=== PATIENT | female | born 1985 | race Caucasian/White ===

== ENCOUNTER 2018-04-12 09:49 | Outpatient (CLI) | payer OTHER ==
--- NOTE | 2018-04-12 10:47 | RAD ---
LEFT KNEE THREE VIEWS: History: 32-year-old female with history chondromalacia patella, left knee. FINDINGS: Mild degenerative changes noted involving the knee joint. No fracture or dislocation or other signifi cant acute osseous abnormality. IMPRESSION: Mild degenerative changes without fracture or dislocation. POS: [facility]
--- NOTE | 2018-04-12 10:48 | RAD ---
FOUR VIEWS OF THE RIGHT KNEE: COMPARISON: None. HISTORY: Right knee pain. Chondromalacia patella. FINDINGS: Four views of the right knee show no evidence of acute fracture or dislocation. No degenerative hassan ges are seen. No knee effusion is seen. IMPRESSION: Unremarkable exam. POS: [facility]
== END 2018-04-12 09:50 | disposition home or self-care (01) ==
LOC: BICRAD 09:49
PROVIDERS: ATTEND Internal Medicine Rheumatology
DX: M22.41 Chondromalacia patellae, right knee (principal); M22.42 Chondromalacia patellae, left knee; M17.12 Unilateral primary osteoarthritis, left knee

== ENCOUNTER 2018-11-21 07:27 | Outpatient (CLI) | payer BC ==
--- NOTE | 2018-11-21 09:32 | MRI ---
BRAIN MRI WITH AND WITHOUT CONTRAST: Date: 11/21/18 COMPARISON: 02/25/2016. HISTORY: Pituitary tumor, headaches, prior surgery. TECHNIQUE: Multiplanar multisequence MR imaging of the brain obtained with and without contrast using a pituitary mass protocol. FINDINGS: The diffusion weighted imaging demonstrates no evidence for acute infarction. There is a small focus of increased FLAIR and T2 signal measuring 3-4 mm involving the subcortical wh ite matter of the right frontal region, unchanged when compared to the 2016 examination. The imaged paranasal sinuses and mastoid air cells are well aerated. The regional bone marrow signal intensity appears within normal limits. Arterial flow voids at the axial level of the skull base appear grossly unremarkable on the T2-weight ed imaging. The pituitary gland appears normal in size and signal intensity. No suprasellar lesion. Pituitary sta lk demonstrates a normal appearance. Cavernous carotid flow voids appear within normal limits. Postcontrast imaging demonstrates no abnormal enhancement in the region of the pituitary gland/sella turcica. Whole brain postcontrast imaging is unremarkable as well. There is a 5 mm T1 and T2 isointense lesion to the left of midline posterior to the pituitary gland i nferior to the optic chiasm which is stable when compared to the prior examination and likely demonstrates mild enhancement. Stability over 3 years suggests a benign etiology. Perhaps this repres ents a small meningioma. IMPRESSION: Stable brain MRI. No pituitary lesion. Questionable 5 mm meningioma posterior to the pituitary gland on the left. A CT examination may be beneficial for further assessment with thin cuts through the skull base. Transcribed Date/Time: 11/21/2018 10:29 AM
== END 2018-11-21 07:28 | disposition home or self-care (01) ==
LOC: SCSMRI 07:27
PROVIDERS: ATTEND Neurological Surgery
DX: D35.2 Benign neoplasm of pituitary gland (principal)
CPT/HCPCS: 70553

== ENCOUNTER 2020-01-06 11:22 | Emergency (ER) | payer BC, OTHER ==
[2020-01-06] MEDS ORDERED: Azithromycin 250 MG TAB ONE (12:16)
[2020-01-06] MEDS ORDERED: Ondansetron PF 4 MG/2 ML Vial ONE (12:16)
--- NOTE | 2020-01-06 12:37 | RAD ---
CHEST 1 VIEW: INDICATION: Chest pain, shortness of breath, and exposure to COVID-19. COMPARISON: None. FINDINGS: No acute airspace opacity is evident. Heart size is accentuated by exam technique. No pleural effus ion or pneumothorax is evident. No acute osseous abnormality is evident. IMPRESSION: No acute abnormality. POS: [facility]
[2020-01-06 13:05] LABS: Hemoglobin 12.7 g/dL (12.0-16.0); Mean Corpuscular HGB CONC 33.7 g/dL (32.0-36.0); Mean Corpuscular Hemoglobin 29.3 pg (27.0-31.0); Mean Corpuscular Volume 87.2 fL (78.0-98.0); Mean Platelet Volume 7.1 fL (7.4-10.4); Platelet Count 169 thou/uL (130-400); RBC Distribution Width 11.2 % (11.5-14.5); Red Blood Cell (RBC) Count 4.34 mill/uL (4.20-5.40); White Blood Cell (WBC) Count 4.8 thou/uL (4.8-10.8)
[2020-01-06 13:25] LABS: Band 17 % (5-11); Eosinophils 1 % (0-10); Lymphocytes 20 % (21-51); MDiff Complete? YES; Monocytes 17 % (0-10); Neutrophil 44 % (42-75); Platelet Morphology Comment Appears Adequate; RBC Morphology Normal; Reactive Lymphocytes 1 % (0-10)
[2020-01-06 13:27] LABS: ALT (SGPT) 26 U/L (8-55); AST (SGOT) 19 U/L (5-34); Alkaline Phosphatase 68 U/L (40-110); Anion Gap 12 mmol/L (10-20); BUN (Urea Nitrogen) 9 mg/dL (7.0-18.7); Bilirubin, Total 0.2 mg/dL (0.2-1.2); Calc. Creatinine Clearance 0 mL/min (70-130); Calcium 8.9 mg/dL (7.8-10.44); Carbon Dioxide 26 mmol/L (22-29); Chloride 107 mmol/L (98-107); Estimated GFR-MDRD Greater than 90; Globulin 2.6 g/dL (2.4-3.5); Glucose 106 mg/dL (70-105); Protein, Total 6.6 g/dL (6.0-8.3); Sodium 141 mmol/L (136-145)
[2020-01-06 14:33] LABS: Bilirubin Negative (Negative); Blood, Urine Negative (Negative); Clarity Clear (Clear); Glucose, Urine (Dipstick) Normal (Negative); Ketone, Urine Negative (Negative); Leukocyte Negative Leu/uL (Negative); Nitrite Negative (Negative); Protein, Urine (Dipstick) Negative (Neg-Trace); Specific Gravity, Urine 1.004 (1.002-1.036); Urobilinogen Normal mg/dL (Less than 2); pH, Urine 6.5 (5.0-9.0)
[2020-01-07 12:20] LABS: SARS-CoV-2 MS2 Positive; SARS-CoV-2 N Gene Positive; SARS-CoV-2 S Gene Positive; SARS-CoV-2 by NAA DETECTED (NotDetected); SARS-CoV-2 orf1ab Positive
== END 2020-01-06 14:14 | disposition home or self-care (01) ==
LOC: ERS 11:22
DX: U07.1 COVID-19 (principal); N30.90 Cystitis, unspecified without hematuria; E03.9 Hypothyroidism, unspecified; I10 Essential (primary) hypertension
CPT/HCPCS: 71045; 80053; 81003; 85025; 87086; 87635; 93005; 96361; 96374; J2405; U0003

== ENCOUNTER 2020-01-11 17:15 | Emergency (ER) | payer BC ==
[2020-01-11 18:01] LABS: #Lymphocytes 1.6 thou/uL (1.20-3.40); #Monocytes 0.5 thou/uL (0.11-0.59); %Basophils 0.4 % (0.0-1.0); %Eosinophils 0.2 % (0.0-10.0); %Lymphocytes 37.8 % (21.0-51.0); %Monocytes 12.1 % (0.0-10.0); %Neutrophils 49.5 % (42.0-75.0); Mean Corpuscular HGB CONC 32.9 g/dL (32.0-36.0); Mean Corpuscular Hemoglobin 28.2 pg (27.0-31.0); Mean Corpuscular Volume 85.7 fL (78.0-98.0); Mean Platelet Volume 8.1 fL (7.4-10.4); Platelet Count 144 thou/uL (130-400); RBC Distribution Width 11.3 % (11.5-14.5); Red Blood Cell (RBC) Count 5.31 mill/uL (4.20-5.40); White Blood Cell (WBC) Count 4.1 thou/uL (4.8-10.8)
--- NOTE | 2020-01-11 18:07 | RAD ---
Exam: Chest one view HISTORY:Sepsis. COVID positive patient. Comparison: 01/06/2020 FINDINGS: Cardiac silhouette: Normal Aorta: Unremarkable Pulmonary vessels: Normal Costophrenic angles: Clear LUNGS: Interval development of minimal patchy interstitial opacities. Pneumothorax: None Osseous abnormalities: None IMPRESSION: Interval development of minimal patchy interstitial opacities.
[2020-01-11] MEDS ORDERED: Acetaminophen 500 MG TAB ONE (18:08)
[2020-01-11 18:17] LABS: ALT (SGPT) 44 U/L (8-55); AST (SGOT) 40 U/L (5-34); Albumin 4.7 g/dL (3.5-5.0); Alkaline Phosphatase 83 U/L (40-110); Anion Gap 16 mmol/L (10-20); BUN (Urea Nitrogen) 6 mg/dL (7.0-18.7); Bilirubin, Total 0.4 mg/dL (0.2-1.2); Calc. Creatinine Clearance 0 mL/min (70-130); Calcium 9.7 mg/dL (7.8-10.44); Carbon Dioxide 23 mmol/L (22-29); Chloride 105 mmol/L (98-107); Estimated GFR-MDRD 82; Globulin 3.8 g/dL (2.4-3.5); Glucose 97 mg/dL (70-105); Potassium 4.1 mmol/L (3.5-5.1); Protein, Total 8.5 g/dL (6.0-8.3); Sodium 140 mmol/L (136-145)
[2020-01-11] MEDS ORDERED: Ondansetron PF 4 MG/2 ML Vial ONE (19:29)
== END 2020-01-11 21:04 | disposition home or self-care (01) ==
LOC: ERS 17:15
DX: U07.1 COVID-19 (principal); R94.5 Abnormal results of liver function studies; R11.2 Nausea with vomiting, unspecified; E03.9 Hypothyroidism, unspecified; M79.7 Fibromyalgia; M19.90 Unspecified osteoarthritis, unspecified site; I10 Essential (primary) hypertension; Q61.3 Polycystic kidney, unspecified
CPT/HCPCS: 36415; 71045; 80053; 83605; 84484; 85025; 87040; 93005; 94760; 96361; 96374; J2405

== ENCOUNTER 2020-02-17 09:59 | Emergency (ER) | payer BC, OTHER ==
[2020-02-17 11:39] LABS: #Eosinphils 0.1 thou/uL (0.0-0.7); #Lymphocytes 1.8 thou/uL (1.20-3.40); #Monocytes 0.6 thou/uL (0.11-0.59); #Neutrophils 4.5 thou/uL (1.40-6.50); %Basophils 0.5 % (0.0-1.0); %Eosinophils 1.1 % (0.0-10.0); %Lymphocytes 25.7 % (21.0-51.0); %Monocytes 9.1 % (0.0-10.0); %Neutrophils 63.6 % (42.0-75.0); Hemoglobin 11.8 g/dL (12.0-16.0); Mean Corpuscular HGB CONC 34.8 g/dL (32.0-36.0); Mean Corpuscular Hemoglobin 30.6 pg (27.0-31.0); Mean Corpuscular Volume 87.8 fL (78.0-98.0); Mean Platelet Volume 6.9 fL (7.4-10.4); Platelet Count 216 thou/uL (130-400); RBC Distribution Width 13.1 % (11.5-14.5); Red Blood Cell (RBC) Count 3.86 mill/uL (4.20-5.40)
[2020-02-17 12:01] LABS: ALT (SGPT) 37 U/L (8-55); AST (SGOT) 30 U/L (5-34); Alkaline Phosphatase 54 U/L (40-110); Anion Gap 13 mmol/L (10-20); BUN (Urea Nitrogen) 5 mg/dL (7.0-18.7); Bilirubin, Total 0.4 mg/dL (0.2-1.2); CK (CPK) 39 U/L (29-168); Calc. Creatinine Clearance 0 mL/min (70-130); Calcium 8.7 mg/dL (7.8-10.44); Carbon Dioxide 25 mmol/L (22-29); Chloride 106 mmol/L (98-107); Estimated GFR-MDRD Greater than 90; Globulin 2.5 g/dL (2.4-3.5); Glucose 121 mg/dL (70-105); Potassium 3.4 mmol/L (3.5-5.1); Protein, Total 6.5 g/dL (6.0-8.3); Sodium 141 mmol/L (136-145)
--- NOTE | 2020-02-17 12:19 | ULT ---
EXAM: Right lower extremity venous Doppler US HISTORY: Right lower extremity edema and pain FINDINGS: Grayscale, color-flow, Doppler evaluation, spectral analysis of the right lower extremity venous stru ctures is performed with 2-D imaging. The right common femoral, superficial femoral, popliteal, posterior tibial, proximal greater saphenous and profunda femoral veins are imaged. There is normal luminal compressibility, flow, and augmentation the visualized deep venous structures of the right lower extremity. IMPRESSION: No evidence of a deep vein thrombosis in the right lower extremity.
== END 2020-02-17 13:17 | disposition home or self-care (01) ==
LOC: ERS 09:59
DX: R22.41 Localized swelling, mass and lump, right lower limb (principal); E03.9 Hypothyroidism, unspecified; I10 Essential (primary) hypertension; M79.7 Fibromyalgia; M19.90 Unspecified osteoarthritis, unspecified site; Z79.899 Other long term (current) drug therapy
CPT/HCPCS: 36415; 80053; 82550; 85025

== ENCOUNTER 2020-09-03 15:43 | Outpatient (CLI) | payer BC ==
[2020-09-03 16:48] LABS: BHCG - Serum Negative (NEGATIVE); Pregs Control Background? CLEAR/WHITE (CLR/WHITE); Pregs Control Bar Appear? YES (CONTROL BAR)
[2020-09-04 05:36] LABS: SARS-CoV-2 PCR by NAA Not Detected (NotDetected)
== END 2020-09-03 15:44 | disposition home or self-care (01) ==
LOC: LABBT 15:43
PROVIDERS: ATTEND Neurological Surgery
DX: Z01.818 Encounter for other preprocedural examination (principal); Z20.822 Contact with and (suspected) exposure to COVID-19
CPT/HCPCS: 84703; 87635; 93005; 93010; U0003; U0005

== ENCOUNTER 2020-09-06 06:21 | Day surgery (SDC) | payer BC ==
[2020-09-05 09:15] VITALS: BMI 44.1
[2020-09-06] MEDS ORDERED: Rocuronium Bromide 50 MG/5 ML VIAL ONE (07:53)
[2020-09-06] MEDS ORDERED: PROPOFOL 20 ML ONE (07:53)
[2020-09-06] MEDS ORDERED: Lidocaine 2% PF 100 mg/5 ml Syringe ONE (07:53)
[2020-09-06] MEDS ORDERED: Bupivacaine PF 0.5% 30 ML VIAL ONE (08:50)
[2020-09-06] MEDS ORDERED: EPINEPHrine 1 MG/ML AMP ONE (08:50)
[2020-09-06] MEDS ORDERED: Thrombin 5000 UNITS/5 ML VIAL ONE (08:50)
[2020-09-06] MEDS ORDERED: Fentanyl 250 MCG/5 ML VIAL ONE (08:54)
[2020-09-06] MEDS ORDERED: Lidocaine 1% PF 5 ML VIAL ONE (09:08)
[2020-09-06] MEDS ORDERED: Glycopyrrolate 0.2 MG/ML 5 ML SYRINGE ONE (09:08)
[2020-09-06] MEDS ORDERED: Rocuronium Bromide 10 MG/ML (10ML VIAL) ONE (09:08)
[2020-09-06] MEDS ORDERED: Ondansetron PF 4 MG/2 ML Vial ONE (09:08)
[2020-09-06] MEDS ORDERED: Dexamethasone 20 MG/5 ML VIAL ONE (09:08)
[2020-09-06] MEDS ORDERED: PROPOFOL 200 MG/20 ML VIAL ONE (09:08)
[2020-09-06] MEDS ORDERED: Fentanyl 100 MCG/2 ML VIAL ONE ×2 (10:54→11:02)
[2020-09-06] MEDS ORDERED: tiZANidine HCl 4 MG TAB ONE (11:09)
[2020-09-06] MEDS ORDERED: HYDROcodone/Acetaminophen 5/325 mg Tablet ONE (11:44)
== END 2020-09-06 14:30 | disposition home or self-care (01) ==
LOC: SDC 06:21
PROVIDERS: ATTEND Neurological Surgery
PROC: 00NY0ZZ Release Lumbar Spinal Cord, Open Approach (ICD-10-PCS; principal; 2020-09-06)
DX: M48.061 Spinal stenosis, lumbar region without neurogenic claudication (principal); M54.16 Radiculopathy, lumbar region; Z79.899 Other long term (current) drug therapy
CPT/HCPCS: 76000; J0171; J0690; J1100; J2001; J2405; J2704; J3010; S0020

== ENCOUNTER 2020-12-05 13:54 | Outpatient (CLI) | payer BC | END 2020-12-05 13:55 | disposition home or self-care (01) | LOC: TBSIIMAG 13:54 | PROVIDERS: ATTEND Neurological Surgery | DX: M48.062 Spinal stenosis, lumbar region with neurogenic claudication (principal); M51.27 Other intervertebral disc displacement, lumbosacral region; L90.5 Scar conditions and fibrosis of skin; Z98.890 Other specified postprocedural states | CPT/HCPCS: 72158 ==

== ENCOUNTER 2021-03-04 13:34 | Outpatient (CLI) | payer BC | END 2021-03-04 13:35 | disposition home or self-care (01) | LOC: TBSIIMAG 13:34 | PROVIDERS: ATTEND Neurological Surgery | DX: D49.7 Neoplasm of unspecified behavior of endocrine glands and other parts of nervous system (principal) | CPT/HCPCS: 70553 ==

== ENCOUNTER 2021-03-13 08:29 | Outpatient (CLI) | payer BC | END 2021-03-13 08:30 | disposition home or self-care (01) | LOC: BICRAD 08:29 | PROVIDERS: ATTEND Specialist | DX: M46.1 Sacroiliitis, not elsewhere classified (principal); M89.38 Hypertrophy of bone, other site; M47.816 Spondylosis without myelopathy or radiculopathy, lumbar region; M51.36 Other intervertebral disc degeneration, lumbar region; M16.0 Bilateral primary osteoarthritis of hip | CPT/HCPCS: 72110; 73521 ==

== ENCOUNTER 2021-07-02 13:53 | Outpatient (CLI) | payer BC | END 2021-07-02 13:54 | disposition home or self-care (01) | LOC: MRI 13:53 | PROVIDERS: ATTEND Specialist | DX: M54.12 Radiculopathy, cervical region (principal) | CPT/HCPCS: 72141 ==

== ENCOUNTER 2021-10-31 12:09 | Outpatient (CLI) | payer BC | END 2021-10-31 12:10 | disposition home or self-care (01) | LOC: BICMRI 12:09 | PROVIDERS: ATTEND Nurse Practitioner Family | DX: M48.062 Spinal stenosis, lumbar region with neurogenic claudication (principal) | CPT/HCPCS: 72148 ==

== ENCOUNTER 2022-01-02 08:54 | Emergency (ER) | payer BC ==
[2022-01-02] MEDS ORDERED: methylPREDNISolone Sod Succ/PF 125 MG/2 ML VIAL ONE (09:26)
[2022-01-02] MEDS ORDERED: Ondansetron PF 4 MG/2 ML Vial ONE (09:26)
[2022-01-02 10:12] LABS: #Basophils 0.1 thou/uL (0.0-0.2); #Lymphocytes 2.3 thou/uL (1.20-3.40); #Monocytes 0.7 thou/uL (0.11-0.59); %Basophils 0.8 % (0.0-1.0); %Eosinophils 0.7 % (0.0-10.0); %Lymphocytes 32.5 % (21.0-51.0); Hemoglobin 15.5 g/dL (12.0-16.0); Mean Corpuscular HGB CONC 34.1 g/dL (32.0-36.0); Mean Corpuscular Hemoglobin 30.3 pg (27.0-31.0); Mean Corpuscular Volume 88.8 fL (78.0-98.0); Mean Platelet Volume 7.3 fL (7.4-10.4); Platelet Count 249 thou/uL (130-400); Red Blood Cell (RBC) Count 5.12 mill/uL (4.20-5.40); White Blood Cell (WBC) Count 7.1 thou/uL (4.8-10.8)
[2022-01-02 10:17] LABS: BHCG - Serum Negative (NEGATIVE); Pregs Control Background? CLEAR/WHITE (CLR/WHITE); Pregs Control Bar Appear? YES (CONTROL BAR)
[2022-01-02 10:36] LABS: Albumin 4.6 g/dL (3.5-5.0); Anion Gap 21 mmol/L (10-20); BUN (Urea Nitrogen) 8 mg/dL (7.0-18.7); Bilirubin, Total 0.8 mg/dL (0.2-1.2); Calc. Creatinine Clearance 0 mL/min (70-130); Calcium 10.1 mg/dL (7.8-10.44); Carbon Dioxide 20 mmol/L (22-29); Chloride 101 mmol/L (98-107); Estimated GFR 91; Globulin 3.4 g/dL (2.4-3.5); Glucose 125 mg/dL (70-105); Sodium 139 mmol/L (136-145)
[2022-01-02 10:37] LABS: ALT (SGPT) 22 U/L (8-55); AST (SGOT) 19 U/L (5-34); Alkaline Phosphatase 95 U/L (40-110)
[2022-01-02 11:39] LABS: SARS-CoV-2 NAA Rapid Test DETECTED (NotDetected)
[2022-01-02] MEDS ORDERED: Potassium Chloride 20 MEQ TAB ONE (12:50)
[2022-01-02] MEDS ORDERED: Iopamidol-370 76% 500 ML 1 ML ONE (12:56)
== END 2022-01-02 13:01 | disposition home or self-care (01) ==
LOC: ERS 08:54
DX: U07.1 COVID-19 (principal); J12.82 Pneumonia due to coronavirus disease 2019; E87.6 Hypokalemia; E03.9 Hypothyroidism, unspecified; I10 Essential (primary) hypertension; Z79.899 Other long term (current) drug therapy
CPT/HCPCS: 36415; 71046; 71275; 80053; 83605; 84484; 84703; 85025; 87040; 93005; 96361; 96374; 96375; J2405; J2930; Q9967

== ENCOUNTER 2022-02-21 09:44 | Emergency (ER) | payer BC | END 2022-02-21 12:15 | disposition home or self-care (01) | LOC: ERS 09:44 | DX: U07.1 COVID-19 (principal); E03.9 Hypothyroidism, unspecified; I10 Essential (primary) hypertension; E23.2 Diabetes insipidus | CPT/HCPCS: 71045 ==

== ENCOUNTER 2022-02-26 06:40 | Inpatient (IN) | payer BC ==
[2022-02-26 07:27] LABS: Hemoglobin 13.5 g/dL (12.0-16.0); Mean Corpuscular HGB CONC 35.4 g/dL (32.0-36.0); Mean Corpuscular Hemoglobin 32.3 pg (27.0-31.0); Mean Corpuscular Volume 91.2 fL (78.0-98.0); Mean Platelet Volume 6.4 fL (7.4-10.4); Platelet Count 354 thou/uL (130-400); RBC Distribution Width 12.1 % (11.5-14.5); Red Blood Cell (RBC) Count 4.18 mill/uL (4.20-5.40)
[2022-02-26 07:38] LABS: BHCG - Serum Negative (NEGATIVE); Pregs Control Background? CLEAR/WHITE (CLR/WHITE); Pregs Control Bar Appear? YES (CONTROL BAR)
[2022-02-26 07:48] LABS: ALT (SGPT) 19 U/L (8-55); AST (SGOT) 9 U/L (5-34); Albumin 3.9 g/dL (3.5-5.0); Alkaline Phosphatase 63 U/L (40-110); Anion Gap 18 mmol/L (10-20); BUN (Urea Nitrogen) 18 mg/dL (7.0-18.7); Bilirubin, Total 0.4 mg/dL (0.2-1.2); Calc. Creatinine Clearance 0 mL/min (70-130); Calcium 9.1 mg/dL (7.8-10.44); Carbon Dioxide 20 mmol/L (22-29); Chloride 105 mmol/L (98-107); Estimated GFR 92; Globulin 2.6 g/dL (2.4-3.5); Glucose 222 mg/dL (70-105); Potassium 3.5 mmol/L (3.5-5.1); Protein, Total 6.5 g/dL (6.0-8.3); Sodium 139 mmol/L (136-145)
[2022-02-26 07:49] LABS: Band 1 % (5-11); Lymphocytes 9 % (21-51); MDiff Complete? YES; Monocytes 8 % (0-10); Neutrophil 80 % (42-75); RBC Morphology Normal; Reactive Lymphocytes 2 % (0-10)
[2022-02-26 10:15] LABS: Bacteria/HPF None Seen HPF (None Seen); Bilirubin Negative (Negative); Blood, Urine 2+ (Negative); Clarity Clear (Clear); Glucose, Urine (Dipstick) Normal (Negative); Ketone, Urine Negative (Negative); Leukocyte Negative Leu/uL (Negative); Nitrite Negative (Negative); Protein, Urine (Dipstick) Negative (Neg-Trace); Specific Gravity, Urine 1.035 (1.002-1.036); Squamous Epithelial 0-3 HPF (0-3); Urobilinogen Normal mg/dL (Less than 2); WBC/HPF 0-3 HPF (0-3); pH, Urine 6.5 (5.0-9.0)
[2022-02-26 10:24] LABS: Lactic Acid 4.1 mmol/L (0.5-2.2)
[2022-02-26 11:02] LABS: SARS-CoV-2 NAA Rapid Test Not Detected (NotDetected)
[2022-02-26] MEDS ORDERED: Cefepime 2 GM VIAL ONE (12:16)
[2022-02-26] MEDS ORDERED: VANCOMYCIN 2 GRAM/500 ML BAG 2 GM in Premix Bag 1 BAG IVPB SCH (13:00)
[2022-02-26 13:33] VITALS: BMI 38.5
[2022-02-26] MEDS ORDERED: Ondansetron ODT 4 MG TAB SL PRN (14:15)
[2022-02-26] MEDS ORDERED: Ondansetron PF 4 MG/2 ML Vial IVP PRN ×2 (14:15→17:48)
[2022-02-26] MEDS ORDERED: Acetaminophen 325 MG TAB PO PRN ×2 (14:15→17:47)
[2022-02-26] MEDS ORDERED: Iopamidol-370 76% 500 ML 1 ML ONE (14:29)
[2022-02-26] MEDS: Desmopressin 0.2 mg Tablet PO SCH (19:47)
[2022-02-26] MEDS: Nystatin 500,000 UNITS/5 ML UDCUP PO SCH (19:48)
[2022-02-26] MEDS: guaiFENesin/Codeine 200 mg/20 mg 10 ml Cup PO PRN (19:48)
[2022-02-26] MEDS: Gabapentin 300 MG CAP PO SCH (20:26)
[2022-02-26] MEDS: Ipratropium Oral Inhaler INH PRN (20:27)
[2022-02-26] MEDS ORDERED: Albuterol Sulfate 2.5 mg/3 ml Neb NEB SCH (21:00)
[2022-02-26] MEDS ORDERED: Enoxaparin Sodium 120 MG/0.8 ML SYRINGE SC SCH (21:00)
[2022-02-26] MEDS ORDERED: Cefepime 2 GM in Sodium Chloride 0.9% 100 ML IVPB SCH (23:59)
[2022-02-27] MEDS: guaiFENesin/Codeine 200 mg/20 mg 10 ml Cup PO PRN ×3 (00:03→20:46)
[2022-02-27] MEDS: Albuterol 200 PUFF (6.7GM INHALER) INH SCH ×5 (03:34→18:20)
[2022-02-27] MEDS: Levothyroxine Sodium 75 MCG TAB PO SCH (05:45)
[2022-02-27 06:32] LABS: Lactic Acid 3.3 mmol/L (0.5-2.2)
[2022-02-27 06:37] LABS: Band 4 % (5-11); Hemoglobin 13.4 g/dL (12.0-16.0); Lymphocytes 9 % (21-51); MDiff Complete? YES; Mean Corpuscular HGB CONC 35.7 g/dL (32.0-36.0); Mean Corpuscular Hemoglobin 32.2 pg (27.0-31.0); Mean Corpuscular Volume 90.1 fL (78.0-98.0); Mean Platelet Volume 7.8 fL (7.4-10.4); Metamyelocyte 2 % (0-0); Monocytes 4 % (0-10); Myelocyte 1 % (0-0); Neutrophil 80 % (42-75); Platelet Count 227 thou/uL (130-400); Red Blood Cell (RBC) Count 4.17 mill/uL (4.20-5.40); White Blood Cell (WBC) Count 16.5 thou/uL (4.8-10.8)
[2022-02-27 07:36] LABS: Anion Gap 13 mmol/L (10-20); BUN (Urea Nitrogen) 17 mg/dL (7.0-18.7); CRP (Inflammatory) Less than 0.50 mg/dL (= or < 0.5); Calc. Creatinine Clearance 190 mL/min (70-130); Calcium 8.7 mg/dL (7.8-10.44); Carbon Dioxide 25 mmol/L (22-29); Cardiac Risk 3.2 (Less than 4.5); Chloride 100 mmol/L (98-107); Cholesterol 165 mg/dl (< 200 Desired); Estimated GFR 108; Glucose 152 mg/dL (70-105); HDL Cholesterol 51 mg/dL (>60 Neg Risk); LDL Cholesterol, Calculated 41 mg/dL; Potassium 3.3 mmol/L (3.5-5.1); Sodium 135 mmol/L (136-145); Triglycerides 363 mg/dL (Less than 150)
[2022-02-27] MEDS: Empagliflozin 10 MG TAB PO SCH (08:33)
[2022-02-27] MEDS: Desmopressin 0.2 mg Tablet PO SCH ×2 (08:33→20:28)
[2022-02-27] MEDS: Furosemide 20 MG TAB PO SCH (08:34)
[2022-02-27] MEDS: Nystatin 500,000 UNITS/5 ML UDCUP PO SCH ×5 (08:34→20:29)
[2022-02-27] MEDS: Zinc Sulfate 220 MG CAP PO SCH (08:34)
[2022-02-27] MEDS: Losartan 25 MG TAB PO SCH (08:34)
[2022-02-27] MEDS ORDERED: Non-Formulary Item 1 EACH (Hydrochlorothiazide [Hydrochlorothiazide] 12.5 MG Capsule) PO SCH (09:00)
[2022-02-27] MEDS ORDERED: Hydrochlorothiazide 25 MG TAB PO SCH (09:00)
[2022-02-27] MEDS ORDERED: Levothyroxine Sodium 75 MCG TAB PO SCH (09:00)
[2022-02-27] MEDS ORDERED: Gabapentin 300 MG CAP PO SCH ×2 (09:00→21:00)
[2022-02-27] MEDS ORDERED: Potassium Chloride 20 MEQ TAB PO SCH (10:30)
[2022-02-27] MEDS: Cefepime 2 GM in Sodium Chloride 0.9% 100 ML IVPB SCH (11:30)
[2022-02-27 11:47] LABS: Hemoglobin A1c 5.3 % (4.0-6.0)
[2022-02-27 12:03] LABS: Free T4 (Free Thyroxine) 0.87 ng/dL (0.70-1.48); Thyroid Stimulating Hormone 0.0924 uIU/mL (0.35-4.94)
[2022-02-27 12:17] LABS: Legionella Urinary Ag Negative (Negative); Strep pneumo Urine Ag NEGATIVE (NEGATIVE)
[2022-02-27] MEDS ORDERED: Nystatin 100,000 Units/mL UDCUP PO SCH (13:00)
[2022-02-27] MEDS: Gabapentin 300 MG CAP PO SCH ×2 (20:17→20:29)
[2022-02-27] MEDS: Enoxaparin Sodium 40 MG/0.4 ML SYRINGE SC SCH (20:28)
[2022-02-28] MEDS: Gabapentin 300 MG CAP PO SCH ×2 (00:06→20:49)
[2022-02-28] MEDS: Cefepime 2 GM in Sodium Chloride 0.9% 100 ML IVPB SCH ×2 (01:02→11:21)
[2022-02-28] MEDS: Albuterol 200 PUFF (6.7GM INHALER) INH SCH ×7 (01:06→23:53)
[2022-02-28] MEDS: Levothyroxine Sodium 75 MCG TAB PO SCH (05:54)
[2022-02-28 07:11] LABS: #Eosinphils 0.1 thou/uL (0.0-0.7); #Lymphocytes 2.9 thou/uL (1.20-3.40); #Neutrophils 9.9 thou/uL (1.40-6.50); %Basophils 0.1 % (0.0-1.0); %Eosinophils 0.4 % (0.0-10.0); %Lymphocytes 20.8 % (21.0-51.0); %Monocytes 7.1 % (0.0-10.0); %Neutrophils 71.6 % (42.0-75.0); Hemoglobin 14.1 g/dL (12.0-16.0); Mean Corpuscular HGB CONC 36.2 g/dL (32.0-36.0); Mean Platelet Volume 6.3 fL (7.4-10.4); Platelet Count 265 thou/uL (130-400); RBC Distribution Width 11.9 % (11.5-14.5); Red Blood Cell (RBC) Count 4.27 mill/uL (4.20-5.40); White Blood Cell (WBC) Count 13.9 thou/uL (4.8-10.8)
[2022-02-28 07:24] LABS: Lactic Acid 1.5 mmol/L (0.5-2.2)
[2022-02-28 07:30] LABS: ALT (SGPT) 20 U/L (8-55); AST (SGOT) 12 U/L (5-34); Albumin 3.4 g/dL (3.5-5.0); Alkaline Phosphatase 58 U/L (40-110); Anion Gap 15 mmol/L (10-20); BUN (Urea Nitrogen) 19 mg/dL (7.0-18.7); Bilirubin, Direct 0.1 mg/dL (0.1-0.3); Bilirubin, Total 0.4 mg/dL (0.2-1.2); Calc. Creatinine Clearance 171 mL/min (70-130); Calcium 8.5 mg/dL (7.8-10.44); Carbon Dioxide 23 mmol/L (22-29); Chloride 102 mmol/L (98-107); Estimated GFR 95; Glucose 113 mg/dL (70-105); Magnesium 2.1 mg/dL (1.6-2.6); Potassium 3.4 mmol/L (3.5-5.1); Protein, Total 5.8 g/dL (6.0-8.3); Sodium 137 mmol/L (136-145)
[2022-02-28] MEDS: Benzonatate 100 MG CAP PO PRN (08:24)
[2022-02-28] MEDS: Desmopressin 0.2 mg Tablet PO SCH ×2 (08:24→20:50)
[2022-02-28] MEDS: guaiFENesin/Codeine 200 mg/20 mg 10 ml Cup PO PRN ×4 (08:24→20:57)
[2022-02-28] MEDS: Furosemide 20 MG TAB PO SCH (08:25)
[2022-02-28] MEDS: Zinc Sulfate 220 MG CAP PO SCH (08:25)
[2022-02-28] MEDS: Nystatin 500,000 UNITS/5 ML UDCUP PO SCH ×4 (08:25→20:50)
[2022-02-28] MEDS: Empagliflozin 10 MG TAB PO SCH (08:28)
[2022-02-28] MEDS: Losartan 25 MG TAB PO SCH (08:29)
[2022-02-28] MEDS: Hydrochlorothiazide 25 MG TAB PO SCH (08:29)
[2022-02-28] MEDS ORDERED: Ergocalciferol 1.25 MG(50,000 UNITS) CAP PO SCH (09:45)
[2022-02-28] MEDS ORDERED: Potassium Chloride 20 MEQ TAB PO SCH (09:45)
[2022-02-28] MEDS ORDERED: Cyanocobalamin 1000 MCG/ML VIAL IM SCH (09:45)
[2022-02-28] MEDS: Acetaminophen 325 MG TAB PO SCH ×4 (11:07→23:53)
[2022-02-28] MEDS: Ipratropium Oral Inhaler INH PRN (11:15)
[2022-02-28 13:23] LABS: SARS-CoV-2 NAA Rapid Test Not Detected (NotDetected)
[2022-02-28] MEDS: Enoxaparin Sodium 40 MG/0.4 ML SYRINGE SC SCH (20:50)
[2022-03-01] MEDS: Cefepime 2 GM in Sodium Chloride 0.9% 100 ML IVPB SCH ×2 (00:04→12:25)
[2022-03-01] MEDS: Acetaminophen 325 MG TAB PO SCH ×6 (03:03→21:17)
[2022-03-01] MEDS: Albuterol 200 PUFF (6.7GM INHALER) INH SCH ×6 (03:46→20:05)
[2022-03-01] MEDS: Levothyroxine Sodium 25 MCG TAB PO SCH (06:26)
[2022-03-01 06:48] LABS: #Eosinphils 0.3 thou/uL (0.0-0.7); #Lymphocytes 3.1 thou/uL (1.20-3.40); #Monocytes 0.9 thou/uL (0.11-0.59); #Neutrophils 8.5 thou/uL (1.40-6.50); %Basophils 0.1 % (0.0-1.0); %Eosinophils 2.4 % (0.0-10.0); %Lymphocytes 24.1 % (21.0-51.0); %Monocytes 7.1 % (0.0-10.0); %Neutrophils 66.3 % (42.0-75.0); Hemoglobin 13.3 g/dL (12.0-16.0); Mean Corpuscular HGB CONC 36.2 g/dL (32.0-36.0); Mean Corpuscular Hemoglobin 32.9 pg (27.0-31.0); Mean Corpuscular Volume 90.9 fL (78.0-98.0); Mean Platelet Volume 6.3 fL (7.4-10.4); Platelet Count 233 thou/uL (130-400); RBC Distribution Width 12.1 % (11.5-14.5); Red Blood Cell (RBC) Count 4.05 mill/uL (4.20-5.40); White Blood Cell (WBC) Count 12.8 thou/uL (4.8-10.8)
[2022-03-01 07:02] LABS: Anion Gap 13 mmol/L (10-20); BUN (Urea Nitrogen) 13 mg/dL (7.0-18.7); Calc. Creatinine Clearance 185 mL/min (70-130); Calcium 8.5 mg/dL (7.8-10.44); Carbon Dioxide 25 mmol/L (22-29); Chloride 103 mmol/L (98-107); Estimated GFR 104; Glucose 113 mg/dL (70-105); Magnesium 2.2 mg/dL (1.6-2.6); Potassium 3.5 mmol/L (3.5-5.1); Sodium 137 mmol/L (136-145)
[2022-03-01 07:17] LABS: HIV (1/2) Antibody/Antigen Non-Reactive (NonReactive); HIV 1/2 INDEX 0.25 S/CO (<1.00)
[2022-03-01] MEDS: guaiFENesin/Codeine 200 mg/20 mg 10 ml Cup PO PRN ×2 (09:17→18:03)
[2022-03-01] MEDS: Potassium Chloride 20 MEQ TAB PO SCH (09:17)
[2022-03-01] MEDS: Nystatin 500,000 UNITS/5 ML UDCUP PO SCH ×4 (09:17→21:17)
[2022-03-01] MEDS: Losartan 25 MG TAB PO SCH (09:17)
[2022-03-01] MEDS: Empagliflozin 10 MG TAB PO SCH (09:18)
[2022-03-01] MEDS: Furosemide 20 MG TAB PO SCH (09:18)
[2022-03-01] MEDS: Hydrochlorothiazide 25 MG TAB PO SCH (09:18)
[2022-03-01] MEDS: Zinc Sulfate 220 MG CAP PO SCH (09:18)
[2022-03-01] MEDS: Desmopressin 0.2 mg Tablet PO SCH ×2 (09:18→21:19)
[2022-03-01] MEDS: Gabapentin 300 MG CAP PO SCH (21:18)
[2022-03-01] MEDS: Enoxaparin Sodium 40 MG/0.4 ML SYRINGE SC SCH (21:18)
[2022-03-02] MEDS: Cefepime 2 GM in Sodium Chloride 0.9% 100 ML IVPB SCH ×2 (00:20→12:24)
[2022-03-02] MEDS: Albuterol 200 PUFF (6.7GM INHALER) INH SCH ×6 (00:28→22:10)
[2022-03-02] MEDS: Acetaminophen 325 MG TAB PO SCH ×6 (00:28→20:55)
[2022-03-02] MEDS: Levothyroxine Sodium 25 MCG TAB PO SCH (06:30)
[2022-03-02 06:44] LABS: #Basophils 0.1 thou/uL (0.0-0.2); #Eosinphils 0.1 thou/uL (0.0-0.7); #Lymphocytes 2.9 thou/uL (1.20-3.40); %Basophils 0.9 % (0.0-1.0); %Eosinophils 1.1 % (0.0-10.0); %Lymphocytes 22.3 % (21.0-51.0); %Monocytes 7.2 % (0.0-10.0); %Neutrophils 68.5 % (42.0-75.0); Hemoglobin 14.1 g/dL (12.0-16.0); Mean Corpuscular HGB CONC 35.1 g/dL (32.0-36.0); Mean Corpuscular Hemoglobin 32.1 pg (27.0-31.0); Mean Corpuscular Volume 91.3 fL (78.0-98.0); Mean Platelet Volume 6.4 fL (7.4-10.4); Platelet Count 253 thou/uL (130-400); RBC Distribution Width 11.9 % (11.5-14.5); Red Blood Cell (RBC) Count 4.38 mill/uL (4.20-5.40); White Blood Cell (WBC) Count 13.2 thou/uL (4.8-10.8)
[2022-03-02 07:03] LABS: Anion Gap 15 mmol/L (10-20); BUN (Urea Nitrogen) 12 mg/dL (7.0-18.7); Calc. Creatinine Clearance 173 mL/min (70-130); Carbon Dioxide 22 mmol/L (22-29); Chloride 100 mmol/L (98-107); Estimated GFR 97; Glucose 126 mg/dL (70-105); Potassium 3.5 mmol/L (3.5-5.1); Sodium 133 mmol/L (136-145)
[2022-03-02] MEDS ORDERED: Cosyntropin 250 MCG VIAL SLOW IVP SCH (08:00)
[2022-03-02] MEDS: Desmopressin 0.2 mg Tablet PO SCH ×2 (08:22→20:56)
[2022-03-02] MEDS: Furosemide 20 MG TAB PO SCH (08:23)
[2022-03-02] MEDS: Nystatin 500,000 UNITS/5 ML UDCUP PO SCH ×4 (08:23→20:55)
[2022-03-02] MEDS: Hydrochlorothiazide 25 MG TAB PO SCH (08:23)
[2022-03-02] MEDS: Losartan 25 MG TAB PO SCH (08:23)
[2022-03-02] MEDS: Empagliflozin 10 MG TAB PO SCH (08:23)
[2022-03-02] MEDS: Potassium Chloride 20 MEQ TAB PO SCH (08:23)
[2022-03-02] MEDS: Zinc Sulfate 220 MG CAP PO SCH (08:23)
[2022-03-02] MEDS: Ipratropium Oral Inhaler INH PRN (17:21)
[2022-03-02] MEDS: Gabapentin 300 MG CAP PO SCH (20:55)
[2022-03-02] MEDS: Benzonatate 100 MG CAP PO PRN (20:56)
[2022-03-02] MEDS: Enoxaparin Sodium 40 MG/0.4 ML SYRINGE SC SCH (20:56)
[2022-03-03] MEDS: Cefepime 2 GM in Sodium Chloride 0.9% 100 ML IVPB SCH ×2 (01:03→12:46)
[2022-03-03] MEDS: guaiFENesin/Codeine 200 mg/20 mg 10 ml Cup PO PRN ×2 (01:03→21:24)
[2022-03-03] MEDS: Acetaminophen 325 MG TAB PO SCH ×6 (02:18→21:35)
[2022-03-03] MEDS: Albuterol 200 PUFF (6.7GM INHALER) INH SCH ×6 (02:19→21:52)
[2022-03-03] MEDS: Levothyroxine Sodium 25 MCG TAB PO SCH (06:25)
[2022-03-03 06:37] LABS: #Eosinphils 0.1 thou/uL (0.0-0.7); #Lymphocytes 2.9 thou/uL (1.20-3.40); #Monocytes 1.1 thou/uL (0.11-0.59); #Neutrophils 8.9 thou/uL (1.40-6.50); %Basophils 0.4 % (0.0-1.0); %Eosinophils 0.9 % (0.0-10.0); %Lymphocytes 22.3 % (21.0-51.0); %Monocytes 8.1 % (0.0-10.0); %Neutrophils 68.4 % (42.0-75.0); Mean Corpuscular Hemoglobin 31.1 pg (27.0-31.0); Mean Corpuscular Volume 91.4 fL (78.0-98.0); Mean Platelet Volume 6.5 fL (7.4-10.4); Platelet Count 255 thou/uL (130-400); RBC Distribution Width 12.2 % (11.5-14.5); Red Blood Cell (RBC) Count 4.49 mill/uL (4.20-5.40)
[2022-03-03 06:59] LABS: Anion Gap 15 mmol/L (10-20); BUN (Urea Nitrogen) 10 mg/dL (7.0-18.7); Calc. Creatinine Clearance 192 mL/min (70-130); Calcium 9.1 mg/dL (7.8-10.44); Carbon Dioxide 21 mmol/L (22-29); Chloride 101 mmol/L (98-107); Estimated GFR 110; Glucose 127 mg/dL (70-105); Potassium 3.7 mmol/L (3.5-5.1); Sodium 133 mmol/L (136-145)
[2022-03-03] MEDS: Desmopressin 0.2 mg Tablet PO SCH ×2 (09:02→21:24)
[2022-03-03] MEDS: Losartan 25 MG TAB PO SCH (09:03)
[2022-03-03] MEDS: Potassium Chloride 20 MEQ TAB PO SCH (09:03)
[2022-03-03] MEDS: Furosemide 20 MG TAB PO SCH (09:03)
[2022-03-03] MEDS: Hydrochlorothiazide 25 MG TAB PO SCH (09:03)
[2022-03-03] MEDS: Empagliflozin 10 MG TAB PO SCH (09:03)
[2022-03-03] MEDS: Zinc Sulfate 220 MG CAP PO SCH (09:03)
[2022-03-03] MEDS: Nystatin 500,000 UNITS/5 ML UDCUP PO SCH ×4 (09:03→21:25)
[2022-03-03] MEDS: Gabapentin 300 MG CAP PO SCH (21:25)
[2022-03-03] MEDS: Enoxaparin Sodium 40 MG/0.4 ML SYRINGE SC SCH (21:25)
[2022-03-03] MEDS: Ipratropium Oral Inhaler INH PRN (21:30)
[2022-03-04] MEDS: Cefepime 2 GM in Sodium Chloride 0.9% 100 ML IVPB SCH (00:45)
[2022-03-04] MEDS: Acetaminophen 325 MG TAB PO SCH ×3 (01:05→10:38)
[2022-03-04] MEDS: Albuterol 200 PUFF (6.7GM INHALER) INH SCH ×3 (02:30→10:39)
[2022-03-04 04:20] LABS: #Eosinphils 0.1 thou/uL (0.0-0.7); #Lymphocytes 2.7 thou/uL (1.20-3.40); #Monocytes 1.2 thou/uL (0.11-0.59); #Neutrophils 9.4 thou/uL (1.40-6.50); %Basophils 0.3 % (0.0-1.0); %Lymphocytes 20.2 % (21.0-51.0); %Neutrophils 69.5 % (42.0-75.0); Hemoglobin 13.6 g/dL (12.0-16.0); Mean Corpuscular HGB CONC 34.2 g/dL (32.0-36.0); Mean Corpuscular Hemoglobin 31.7 pg (27.0-31.0); Mean Corpuscular Volume 92.7 fL (78.0-98.0); Mean Platelet Volume 6.4 fL (7.4-10.4); Platelet Count 245 thou/uL (130-400); RBC Distribution Width 12.2 % (11.5-14.5); Red Blood Cell (RBC) Count 4.31 mill/uL (4.20-5.40); White Blood Cell (WBC) Count 13.5 thou/uL (4.8-10.8)
[2022-03-04 05:29] LABS: Anion Gap 12 mmol/L (10-20); BUN (Urea Nitrogen) 16 mg/dL (7.0-18.7); Calc. Creatinine Clearance 138 mL/min (70-130); Calcium 8.9 mg/dL (7.8-10.44); Carbon Dioxide 25 mmol/L (22-29); Chloride 101 mmol/L (98-107); Estimated GFR 74; Glucose 132 mg/dL (70-105); Magnesium 1.9 mg/dL (1.6-2.6); Potassium 3.6 mmol/L (3.5-5.1); Sodium 134 mmol/L (136-145)
[2022-03-04] MEDS: Levothyroxine Sodium 25 MCG TAB PO SCH (06:45)
[2022-03-04] MEDS: Potassium Chloride 20 MEQ TAB PO SCH (08:21)
[2022-03-04] MEDS: Hydrochlorothiazide 25 MG TAB PO SCH (08:21)
[2022-03-04] MEDS: Zinc Sulfate 220 MG CAP PO SCH (08:21)
[2022-03-04] MEDS: Desmopressin 0.2 mg Tablet PO SCH (08:21)
[2022-03-04] MEDS: Nystatin 500,000 UNITS/5 ML UDCUP PO SCH ×2 (08:21→08:24)
[2022-03-04] MEDS: Empagliflozin 10 MG TAB PO SCH (08:22)
[2022-03-04] MEDS: Furosemide 20 MG TAB PO SCH (08:22)
[2022-03-04] MEDS: Losartan 25 MG TAB PO SCH (08:23)
[2022-03-04 08:51] VITALS: BP 125/83; TEMP 98.4
[2022-03-04] MEDS ORDERED: Ergocalciferol 1.25 MG(50,000 UNITS) CAP PO SCH (09:00)
== END 2022-03-04 11:15 | disposition home or self-care (01) | DRG 871 ==
LOC: ERS 06:40 → T4-A 12:04
PROVIDERS: ADMIT Specialist; ATTEND Specialist
PROC: 3E03329 Introduction of Other Anti-infective into Peripheral Vein, Percutaneous Approach (ICD-10-PCS; principal; 2022-02-26)
PROC: 8E0ZXY6 Isolation (ICD-10-PCS; 2022-02-26)
DX: A41.89 Other specified sepsis (principal); U07.1 COVID-19; E23.2 Diabetes insipidus; D84.9 Immunodeficiency, unspecified; E87.1 Hypo-osmolality and hyponatremia; F41.9 Anxiety disorder, unspecified; E03.9 Hypothyroidism, unspecified; I10 Essential (primary) hypertension; M79.7 Fibromyalgia; E28.2 Polycystic ovarian syndrome; E66.9 Obesity, unspecified; E87.6 Hypokalemia; R73.9 Hyperglycemia, unspecified; R31.9 Hematuria, unspecified; Z99.81 Dependence on supplemental oxygen; Z28.311 Partially vaccinated for COVID-19; Z86.16 Personal history of COVID-19; Z68.38 Body mass index [BMI] 38.0-38.9, adult
CPT/HCPCS: 36415; 71045; 71275; 80048; 80053; 80061; 80076; 80400; 81003; 81015; 82024; 83036; 83605; 83735; 84439; 84443; 84484; 84703; 85025; 85379; 85652; 86140; 87040; 87070; 87081; 87205; 87389; 87449; 87633; 87899; 93005; 94667; 96365; J0692; J0834; J1650; J2405; J3370; J3420; J3490; Q9967; U0002

== ENCOUNTER 2022-05-28 09:04 | Outpatient (CLI) | payer BC | END 2022-05-28 09:05 | disposition home or self-care (01) | LOC: TBSIIMAG 09:04 | PROVIDERS: ATTEND Neurological Surgery | DX: M43.16 Spondylolisthesis, lumbar region (principal); M47.816 Spondylosis without myelopathy or radiculopathy, lumbar region; M51.36 Other intervertebral disc degeneration, lumbar region | CPT/HCPCS: 72120 ==

== ENCOUNTER 2022-06-30 06:52 | Outpatient (CLI) | payer BC ==
[2022-06-30 07:56] LABS: Hemoglobin 13.6 g/dL (12.0-15.5); Mean Corpuscular HGB CONC 34.8 g/dL (32.0-36.0); Mean Corpuscular Hemoglobin 28.5 pg (27.0-33.0); Mean Corpuscular Volume 81.8 fl (81.6-98.3); Mean Platelet Volume 8.7 fl (7.4-10.4); Platelet Count 297 10x3/uL (150-450); RBC Distribution Width 12.5 % (11.5-14.5); Red Blood Cell (RBC) Count 4.78 10x6/uL (3.90-5.03); White Blood Cell (WBC) Count 8.8 10x3/uL (3.5-10.5)
[2022-06-30 08:28] LABS: Anion Gap 14 mmol/L (10-20); BUN (Urea Nitrogen) 12 mg/dL (7.0-18.7); Calc. Creatinine Clearance 0 mL/min (70-130); Calcium 9.7 mg/dL (7.8-10.44); Carbon Dioxide 25 mmol/L (22-29); Chloride 104 mmol/L (98-107); Estimated GFR 95; Glucose 106 mg/dL (70-105); Potassium 3.4 mmol/L (3.5-5.1); Sodium 140 mmol/L (136-145)
== END 2022-06-30 06:53 | disposition home or self-care (01) ==
LOC: LABBT 06:52
PROVIDERS: ATTEND Neurological Surgery
DX: Z01.812 Encounter for preprocedural laboratory examination (principal); M54.16 Radiculopathy, lumbar region
CPT/HCPCS: 80048; 85027

== ENCOUNTER 2022-07-03 05:36 | Day surgery (SDC) | payer BC ==
[2022-07-02 12:27] VITALS: BMI 40.1
[2022-07-03] MEDS ORDERED: Thrombin 5000 UNITS/5 ML VIAL ONE (06:28)
[2022-07-03] MEDS ORDERED: Bupivacaine HCl 0.5%/Epinephrine 1:200,000/PF 30 ml Vial ONE (06:28)
[2022-07-03] MEDS ORDERED: Fentanyl 250 MCG/5 ML VIAL ONE (06:39)
[2022-07-03] MEDS ORDERED: Midazolam HCl 2 mg/2 ml Vial ONE (06:39)
[2022-07-03] MEDS ORDERED: CEFAZOLIN 2 GM VIAL ONE ×2 (06:47→10:28)
[2022-07-03] MEDS ORDERED: Sodium Chloride 0.9% 100 ML ONE ×2 (06:47→10:28)
[2022-07-03] MEDS ORDERED: Glycopyrrolate 0.2 MG/ML 5 ML SYRINGE ONE (06:58)
[2022-07-03] MEDS ORDERED: PROPOFOL 200 MG/20 ML VIAL ONE (06:58)
[2022-07-03] MEDS ORDERED: Dexamethasone 20 MG/5 ML VIAL ONE (06:58)
[2022-07-03] MEDS ORDERED: NEOSTIGMINE 3 MG/3 ML SYR 3 MG/3 ML SYRINGE ONE (06:58)
[2022-07-03] MEDS ORDERED: Ondansetron PF 4 MG/2 ML Vial ONE ×2 (06:58→11:16)
[2022-07-03] MEDS ORDERED: Lidocaine 1% PF 5 ML VIAL ONE (06:58)
[2022-07-03] MEDS ORDERED: Rocuronium Bromide 10 MG/ML (10ML VIAL) ONE (06:58)
[2022-07-03] MEDS ORDERED: Fentanyl 100 MCG/2 ML VIAL ONE (08:46)
[2022-07-03] MEDS ORDERED: HYDROcodone/Acetaminophen 5/325 mg Tablet ONE (09:49)
== END 2022-07-03 12:07 | disposition home or self-care (01) ==
LOC: SDC 05:36
PROVIDERS: ATTEND Neurological Surgery
PROC: 01NB0ZZ Release Lumbar Nerve, Open Approach (ICD-10-PCS; principal; 2022-07-03)
DX: M48.061 Spinal stenosis, lumbar region without neurogenic claudication (principal); M54.16 Radiculopathy, lumbar region; M48.07 Spinal stenosis, lumbosacral region; M43.17 Spondylolisthesis, lumbosacral region; M06.9 Rheumatoid arthritis, unspecified; E11.9 Type 2 diabetes mellitus without complications; E88.81 Metabolic syndrome and other insulin resistance; E03.9 Hypothyroidism, unspecified; E28.2 Polycystic ovarian syndrome; I10 Essential (primary) hypertension; E78.5 Hyperlipidemia, unspecified; G47.30 Sleep apnea, unspecified; M79.7 Fibromyalgia; E27.40 Unspecified adrenocortical insufficiency; Z79.52 Long term (current) use of systemic steroids; Z79.620 Long term (current) use of immunosuppressive biologic; Z79.85 Long-term (current) use of injectable non-insulin antidiabetic drugs; Z79.890 Hormone replacement therapy; Z79.899 Other long term (current) drug therapy
CPT/HCPCS: J1100; J2250; J2405; J2704; J3010; J3490

== ENCOUNTER 2022-07-11 11:59 | Emergency (ER) | payer BC ==
[2022-07-11] MEDS ORDERED: diphenhydrAMINE 50 MG/ML VIAL ONE (12:49)
[2022-07-11] MEDS ORDERED: Metoclopramide HCl 10 MG/2 ML VIAL ONE (12:49)
[2022-07-11 13:01] LABS: #Eosinphils 0.2 thou/uL (0.0-0.7); #Lymphocytes 2.3 thou/uL (1.20-3.40); #Monocytes 0.7 thou/uL (0.11-0.59); #Neutrophils 7.5 thou/uL (1.40-6.50); %Basophils 0.3 % (0.0-1.0); %Lymphocytes 21.5 % (21.0-51.0); %Monocytes 6.6 % (0.0-10.0); %Neutrophils 69.6 % (42.0-75.0); Mean Corpuscular HGB CONC 34.4 g/dL (32.0-36.0); Mean Corpuscular Hemoglobin 29.2 pg (27.0-31.0); Mean Corpuscular Volume 84.9 fl (78.0-98.0); Mean Platelet Volume 6.4 fL (7.4-10.4); Platelet Count 299 10x3/uL (130-400); RBC Distribution Width 11.6 % (11.5-14.5); Red Blood Cell (RBC) Count 4.45 mill/uL (4.20-5.40); White Blood Cell (WBC) Count 10.7 10x3/uL (4.8-10.8)
[2022-07-11 13:23] LABS: ALT (SGPT) 14 U/L (8-55); AST (SGOT) 11 U/L (5-34); Alkaline Phosphatase 77 U/L (40-110); Anion Gap 16 mmol/L (10-20); BUN (Urea Nitrogen) 7 mg/dL (7.0-18.7); Bilirubin, Total 0.6 mg/dL (0.2-1.2); Calc. Creatinine Clearance 0 mL/min (70-130); Calcium 9.5 mg/dL (7.8-10.44); Carbon Dioxide 27 mmol/L (22-29); Chloride 99 mmol/L (98-107); Estimated GFR 108; Globulin 2.8 g/dL (2.4-3.5); Glucose 114 mg/dL (70-105); Potassium 3.9 mmol/L (3.5-5.1); Protein, Total 6.8 g/dL (6.0-8.3); Sodium 138 mmol/L (136-145)
[2022-07-11 13:51] LABS: SARS-CoV-2 NAA Rapid Test Not Detected (NotDetected)
[2022-07-11] MEDS ORDERED: Acetaminophen 500 MG TAB ONE (14:32)
[2022-07-11] MEDS ORDERED: Ketorolac Tromethamine 30 MG/ML VIAL ONE (14:32)
[2022-07-11] MEDS ORDERED: Magnesium 2 GM/50 ML BAG (IN WATER) ONE (14:32)
== END 2022-07-11 16:02 | disposition home or self-care (01) ==
LOC: ERS 11:59
DX: R51.9 Headache, unspecified (principal); E03.9 Hypothyroidism, unspecified; I10 Essential (primary) hypertension; E11.9 Type 2 diabetes mellitus without complications; Z79.899 Other long term (current) drug therapy; Z20.822 Contact with and (suspected) exposure to COVID-19
CPT/HCPCS: 36415; 70450; 80053; 85025; 96374; 96375; J1200; J1885; J2765; J3475

== ENCOUNTER 2022-08-28 08:04 | Outpatient (CLI) | payer BC | END 2022-08-28 08:05 | disposition home or self-care (01) | LOC: SCSMRI 08:04 | PROVIDERS: ATTEND Neurological Surgery | DX: D49.6 Neoplasm of unspecified behavior of brain (principal) | CPT/HCPCS: 70553 ==

== ENCOUNTER 2022-09-30 08:43 | Outpatient (CLI) | payer BC | END 2022-09-30 08:44 | disposition home or self-care (01) | LOC: BICRAD 08:43 | PROVIDERS: ATTEND Nurse Practitioner Family | DX: M48.062 Spinal stenosis, lumbar region with neurogenic claudication (principal); M25.551 Pain in right hip; M25.552 Pain in left hip | CPT/HCPCS: 72120 ==

== ENCOUNTER 2022-10-05 11:32 | Outpatient (CLI) | payer BC | END 2022-10-05 11:33 | disposition home or self-care (01) | LOC: SCSMRI 11:32 | PROVIDERS: ATTEND Nurse Practitioner Family | DX: M48.062 Spinal stenosis, lumbar region with neurogenic claudication (principal); M25.551 Pain in right hip; M25.552 Pain in left hip; M47.815 Spondylosis without myelopathy or radiculopathy, thoracolumbar region; M47.816 Spondylosis without myelopathy or radiculopathy, lumbar region; M47.817 Spondylosis without myelopathy or radiculopathy, lumbosacral region; Z98.890 Other specified postprocedural states | CPT/HCPCS: 72148 ==

== ENCOUNTER 2022-10-27 13:05 | Outpatient (CLI) | payer BC | END 2022-10-27 13:06 | disposition home or self-care (01) | LOC: SCSMRI 13:05 | PROVIDERS: ATTEND Specialist | DX: M47.24 Other spondylosis with radiculopathy, thoracic region (principal) | CPT/HCPCS: 72146 ==

== ENCOUNTER 2023-01-12 11:06 | Emergency (ER) | payer BC ==
[2023-01-12] MEDS ORDERED: Ketorolac Tromethamine 30 MG/ML VIAL ONE (13:08)
[2023-01-12 14:04] LABS: #Monocytes 0.7 thou/uL (0.11-0.59); #Neutrophils 4.8 thou/uL (1.40-6.50); %Basophils 0.3 % (0.0-1.0); %Eosinophils 0.4 % (0.0-10.0); %Lymphocytes 20.7 % (21.0-51.0); %Monocytes 10.1 % (0.0-10.0); %Neutrophils 67.9 % (42.0-75.0); Hemoglobin 13.2 g/dL (12.0-16.0); Mean Corpuscular HGB CONC 34.2 g/dL (32.0-36.0); Mean Corpuscular Hemoglobin 29.2 pg (27.0-31.0); Mean Corpuscular Volume 85.4 fl (78.0-98.0); Mean Platelet Volume 8.9 fL (7.4-10.4); Platelet Count 245 10x3/uL (130-400); RBC Distribution Width 12.5 % (11.5-14.5); Red Blood Cell (RBC) Count 4.52 mill/uL (4.20-5.40)
[2023-01-12 14:29] LABS: ALT (SGPT) 17 U/L (8-55); AST (SGOT) 19 U/L (5-34); Albumin 4.7 g/dL (3.5-5.0); Alkaline Phosphatase 87 U/L (40-110); Anion Gap 15 mmol/L (10-20); BUN (Urea Nitrogen) 9 mg/dL (7.0-18.7); Bilirubin, Total 0.2 mg/dL (0.2-1.2); Calc. Creatinine Clearance 0 mL/min (70-130); Calcium 9.6 mg/dL (7.8-10.44); Carbon Dioxide 26 mmol/L (22-29); Chloride 101 mmol/L (98-107); Estimated GFR 101; Globulin 2.5 g/dL (2.4-3.5); Glucose 101 mg/dL (70-105); Potassium 4.2 mmol/L (3.5-5.1); Protein, Total 7.2 g/dL (6.0-8.3); Sodium 138 mmol/L (136-145)
[2023-01-12] MEDS ORDERED: Dexamethasone 10 MG/ML VIAL ONE (15:17)
== END 2023-01-12 15:15 | disposition home or self-care (01) ==
LOC: ERS 11:06
DX: R51.9 Headache, unspecified (principal); B34.9 Viral infection, unspecified; E03.9 Hypothyroidism, unspecified; I10 Essential (primary) hypertension; Z79.899 Other long term (current) drug therapy
CPT/HCPCS: 36415; 71045; 80053; 85025; 87081; 87430; 87804; 96372; J1100; J1885

== ENCOUNTER 2023-01-15 17:41 | Inpatient (IN) | payer BC ==
[~2023-01-15 17:41] MED LIST: Iopamidol-370 76% 500 ML MDV (1 ML CHARGE) ONE
[2023-01-15 18:51] LABS: #Eosinphils 0.1 thou/uL (0.0-0.7); #Monocytes 0.6 thou/uL (0.11-0.59); %Basophils 0.2 % (0.0-1.0); %Lymphocytes 23.3 % (21.0-51.0); %Neutrophils 68.3 % (42.0-75.0); Hematocrit 40.4 % (36.0-47.0); Hemoglobin 14.7 g/dL (12.0-16.0); Mean Corpuscular HGB CONC 36.4 g/dL (32.0-36.0); Mean Corpuscular Hemoglobin 28.9 pg (27.0-31.0); Mean Corpuscular Volume 79.4 fl (78.0-98.0); Mean Platelet Volume 8.3 fL (7.4-10.4); Platelet Count 254 10x3/uL (130-400); RBC Distribution Width 11.6 % (11.5-14.5); Red Blood Cell (RBC) Count 5.09 mill/uL (4.20-5.40); White Blood Cell (WBC) Count 8.7 10x3/uL (4.8-10.8)
[2023-01-15 19:00] LABS: BHCG - Serum Negative (NEGATIVE); Pregs Control Background? CLEAR/WHITE (CLR/WHITE); Pregs Control Bar Appear? YES (CONTROL BAR)
[2023-01-15] MEDS ORDERED: Ondansetron PF 4 MG/2 ML Vial ONE (19:15)
[2023-01-15 19:18] LABS: ALT (SGPT) 18 U/L (8-55); AST (SGOT) 14 U/L (5-34); Albumin 4.6 g/dL (3.5-5.0); Alkaline Phosphatase 90 U/L (40-110); Anion Gap 18 mmol/L (10-20); BUN (Urea Nitrogen) 7 mg/dL (7.0-18.7); Bilirubin, Total 0.3 mg/dL (0.2-1.2); Calc. Creatinine Clearance 0 mL/min (70-130); Calcium 9.5 mg/dL (7.8-10.44); Carbon Dioxide 22 mmol/L (22-29); Chloride 92 mmol/L (98-107); Estimated GFR 111; Globulin 3.1 g/dL (2.4-3.5); Glucose 117 mg/dL (70-105); Lipase 81 U/L (8-78); Potassium 2.7 mmol/L (3.5-5.1); Protein, Total 7.7 g/dL (6.0-8.3); Sodium 129 mmol/L (136-145)
[2023-01-15 19:27] LABS: SARS-CoV-2 NAA Rapid Test Not Detected (NotDetected)
[2023-01-15] MEDS ORDERED: Potassium Chloride 20 MEQ/100 ML PREMIX BAG ONE (19:38)
[2023-01-15] MEDS ORDERED: Potassium Chloride 20 MEQ TAB ONE (19:38)
[2023-01-15] MEDS ORDERED: Ketorolac Tromethamine 30 MG/ML VIAL ONE (20:11)
[2023-01-15 21:10] LABS: Bilirubin Negative (Negative); Blood, Urine 3+ (Negative); CAUTI Indications for Culture Dysuria,urgency,freq; Clarity Clear (Clear); Glucose, Urine (Dipstick) Normal (Negative); Ketone, Urine 40 mg/dL (Negative); Leukocyte Negative Leu/uL (Negative); Nitrite Negative (Negative); Protein, Urine (Dipstick) 10 mg/dL (Neg-Trace); RBC/HPF Greater than 50 HPF (0-3); Specific Gravity, Urine 1.045 (1.002-1.036); Squamous Epithelial 0-3 HPF (0-3); Urobilinogen Normal mg/dL (Less than 2); WBC/HPF 0-3 HPF (0-3); pH, Urine 7.5 (5.0-9.0)
[2023-01-15 21:16] LABS: Bacteria/HPF Rare-Few HPF (None Seen)
[2023-01-15 21:19] LABS: Urine Culture Reflex No No
[2023-01-15] MEDS: Sodium Chloride 0.9% 1,000 ML IV SCH (23:30)
[2023-01-15] MEDS ORDERED: Ondansetron ODT 4 MG TAB SL PRN (23:45)
[2023-01-15] MEDS ORDERED: Ondansetron PF 4 MG/2 ML Vial IVP PRN (23:45)
[2023-01-16 00:09] VITALS: BMI 37.4
[2023-01-16] MEDS: Sodium Chloride 0.9% 1,000 ML IV SCH (04:49)
[2023-01-16 05:47] LABS: #Eosinphils 0.1 thou/uL (0.0-0.7); #Monocytes 0.6 thou/uL (0.11-0.59); #Neutrophils 5.1 thou/uL (1.40-6.50); %Basophils 0.2 % (0.0-1.0); %Lymphocytes 30.6 % (21.0-51.0); %Monocytes 6.6 % (0.0-10.0); %Neutrophils 61.4 % (42.0-75.0); Hematocrit 35.5 % (36.0-47.0); Hemoglobin 12.8 g/dL (12.0-16.0); Mean Corpuscular HGB CONC 36.1 g/dL (32.0-36.0); Mean Corpuscular Volume 80.3 fl (78.0-98.0); Mean Platelet Volume 8.7 fL (7.4-10.4); Platelet Count 223 10x3/uL (130-400); RBC Distribution Width 11.8 % (11.5-14.5); Red Blood Cell (RBC) Count 4.42 mill/uL (4.20-5.40); White Blood Cell (WBC) Count 8.3 10x3/uL (4.8-10.8)
[2023-01-16 06:15] LABS: ALT (SGPT) 12 U/L (8-55); AST (SGOT) 12 U/L (5-34); Albumin 3.9 g/dL (3.5-5.0); Alkaline Phosphatase 74 U/L (40-110); Anion Gap 13 mmol/L (10-20); BUN (Urea Nitrogen) 6 mg/dL (7.0-18.7); Bilirubin, Total 0.3 mg/dL (0.2-1.2); Calc. Creatinine Clearance 202 mL/min (70-130); Calcium 8.7 mg/dL (7.8-10.44); Carbon Dioxide 22 mmol/L (22-29); Chloride 100 mmol/L (98-107); Estimated GFR 114; Globulin 2.5 g/dL (2.4-3.5); Glucose 90 mg/dL (70-105); Potassium 3.2 mmol/L (3.5-5.1); Protein, Total 6.4 g/dL (6.0-8.3); Sodium 132 mmol/L (136-145)
[2023-01-16] MEDS ORDERED: Zolpidem Tartrate 5 MG TAB PO PRN (09:40)
[2023-01-16] MEDS ORDERED: Loperamide HCl 2 MG CAP PO PRN (09:40)
[2023-01-16] MEDS: Ondansetron ODT 4 MG TAB SL SCH ×3 (11:34→21:49)
[2023-01-16] MEDS: NS 0.9% w/ 20 MEQ KCL 1,000 ML IV SCH ×2 (11:34→18:22)
[2023-01-16] MEDS: Acetaminophen 325 MG TAB PO PRN (11:34)
[2023-01-16] MEDS: Acetaminophen/Codeine 30-300mg Tablet PO PRN (18:22)
[2023-01-16] MEDS: Cyclobenzaprine 10 MG TAB PO PRN (20:40)
[2023-01-16] MEDS: Famotidine/PF 20 mg/2ml Vial SLOW IVP SCH (20:41)
[2023-01-17] MEDS: NS 0.9% w/ 20 MEQ KCL 1,000 ML IV SCH ×4 (02:59→20:10)
[2023-01-17] MEDS: Levothyroxine Sodium 75 MCG TAB PO SCH (04:56)
[2023-01-17] MEDS: Ondansetron ODT 4 MG TAB SL SCH ×4 (04:56→21:23)
[2023-01-17 06:32] LABS: #Eosinphils 0.1 thou/uL (0.0-0.7); #Monocytes 0.4 thou/uL (0.11-0.59); #Neutrophils 2.8 thou/uL (1.40-6.50); %Basophils 0.4 % (0.0-1.0); %Eosinophils 1.8 % (0.0-10.0); %Lymphocytes 40.7 % (21.0-51.0); %Monocytes 6.9 % (0.0-10.0); %Neutrophils 49.8 % (42.0-75.0); Hematocrit 34.4 % (36.0-47.0); Hemoglobin 11.7 g/dL (12.0-16.0); Mean Corpuscular Hemoglobin 28.8 pg (27.0-31.0); Mean Corpuscular Volume 84.7 fl (78.0-98.0); Mean Platelet Volume 8.8 fL (7.4-10.4); Platelet Count 179 10x3/uL (130-400); RBC Distribution Width 12.5 % (11.5-14.5); Red Blood Cell (RBC) Count 4.06 mill/uL (4.20-5.40); White Blood Cell (WBC) Count 5.6 10x3/uL (4.8-10.8)
[2023-01-17 06:47] LABS: Hemoglobin A1c 5.5 % (4.0-6.0)
[2023-01-17 06:59] LABS: ALT (SGPT) 15 U/L (8-55); AST (SGOT) 11 U/L (5-34); Albumin 3.6 g/dL (3.5-5.0); Alkaline Phosphatase 64 U/L (40-110); Anion Gap 10 mmol/L (10-20); BUN (Urea Nitrogen) 4 mg/dL (7.0-18.7); Bilirubin, Total 0.2 mg/dL (0.2-1.2); Calc. Creatinine Clearance 188 mL/min (70-130); Calcium 8.5 mg/dL (7.8-10.44); Carbon Dioxide 22 mmol/L (22-29); Cardiac Risk 3.4 (Less than 4.5); Chloride 114 mmol/L (98-107); Cholesterol 84 mg/dl (< 200 Desired); Estimated GFR 111; Globulin 2.1 g/dL (2.4-3.5); Glucose 78 mg/dL (70-105); HDL Cholesterol 25 mg/dL (>60 Neg Risk); LDL Cholesterol, Calculated 34 mg/dL; Lipase 84 U/L (8-78); Potassium 3.6 mmol/L (3.5-5.1); Protein, Total 5.7 g/dL (6.0-8.3); Sodium 142 mmol/L (136-145); Triglycerides 126 mg/dL (Less than 150)
[2023-01-17] MEDS: predniSONE 1 MG TAB PO SCH (08:41)
[2023-01-17] MEDS: Losartan 25 MG TAB PO SCH (08:42)
[2023-01-17] MEDS: Famotidine/PF 20 mg/2ml Vial SLOW IVP SCH ×2 (08:42→20:11)
[2023-01-17] MEDS ORDERED: Magnevist 469MG/ML 20 ML VIAL ONE (09:49)
[2023-01-17] MEDS: Acetaminophen/Codeine 30-300mg Tablet PO PRN (10:11)
[2023-01-17] MEDS ORDERED: GoLYTELY 4,000 ml Bottle PO SCH (17:00)
[2023-01-18] MEDS: Ondansetron ODT 4 MG TAB SL SCH ×4 (03:01→21:52)
[2023-01-18] MEDS: NS 0.9% w/ 20 MEQ KCL 1,000 ML IV SCH ×4 (03:01→19:15)
[2023-01-18 06:28] LABS: #Eosinphils 0.1 thou/uL (0.0-0.7); #Monocytes 0.5 thou/uL (0.11-0.59); #Neutrophils 4.3 thou/uL (1.40-6.50); %Basophils 0.3 % (0.0-1.0); %Eosinophils 1.7 % (0.0-10.0); %Lymphocytes 35.7 % (21.0-51.0); %Monocytes 6.4 % (0.0-10.0); %Neutrophils 55.6 % (42.0-75.0); Hematocrit 31.5 % (36.0-47.0); Hemoglobin 10.9 g/dL (12.0-16.0); Mean Corpuscular HGB CONC 34.6 g/dL (32.0-36.0); Mean Corpuscular Hemoglobin 28.8 pg (27.0-31.0); Mean Corpuscular Volume 83.1 fl (78.0-98.0); Mean Platelet Volume 8.5 fL (7.4-10.4); Platelet Count 152 10x3/uL (130-400); RBC Distribution Width 11.8 % (11.5-14.5); Red Blood Cell (RBC) Count 3.79 mill/uL (4.20-5.40); White Blood Cell (WBC) Count 7.7 10x3/uL (4.8-10.8)
[2023-01-18 06:56] LABS: Anion Gap 10 mmol/L (10-20); BUN (Urea Nitrogen) Less than 4 mg/dL (7.0-18.7); Calc. Creatinine Clearance 205 mL/min (70-130); Calcium 7.9 mg/dL (7.8-10.44); Carbon Dioxide 22 mmol/L (22-29); Chloride 101 mmol/L (98-107); Estimated GFR 115; Glucose 79 mg/dL (70-105); Lipase 44 U/L (8-78); Potassium 2.9 mmol/L (3.5-5.1); Sodium 130 mmol/L (136-145)
[2023-01-18] MEDS: Levothyroxine Sodium 75 MCG TAB PO SCH (07:15)
[2023-01-18] MEDS ORDERED: fentaNYL 50 mcg/mL 1 mL Vial SLOW IVP PRN (07:48)
[2023-01-18] MEDS: predniSONE 1 MG TAB PO SCH (09:13)
[2023-01-18] MEDS: Pantoprazole 40 MG VIAL IVP SCH ×2 (09:13→21:51)
[2023-01-18] MEDS: Losartan 25 MG TAB PO SCH (09:15)
[2023-01-18] MEDS ORDERED: PROPOFOL 200 MG/20 ML VIAL ONE (10:51)
[2023-01-18] MEDS ORDERED: Lidocaine 1% PF 5 ML VIAL ONE (10:51)
[2023-01-18] MEDS ORDERED: Promethazine HCl 25 MG/ML VIAL IM PRN (11:30)
[2023-01-18] MEDS ORDERED: Ondansetron HCl/PF 4 MG/2 ML Vial IVP PRN (11:30)
[2023-01-18] MEDS ORDERED: fentaNYL 50 mcg/mL 1 mL Vial ONE (11:50)
[2023-01-18] MEDS: Acetaminophen 325 MG TAB PO PRN ×2 (12:32→21:52)
[2023-01-18] MEDS: Acetaminophen/Codeine 30-300mg Tablet PO PRN (15:11)
[2023-01-18] MEDS: Cyclobenzaprine 10 MG TAB PO PRN (21:52)
[2023-01-19] MEDS: NS 0.9% w/ 20 MEQ KCL 1,000 ML IV SCH ×4 (00:59→15:32)
[2023-01-19] MEDS: Ondansetron ODT 4 MG TAB SL SCH ×4 (05:42→20:47)
[2023-01-19] MEDS: Levothyroxine Sodium 75 MCG TAB PO SCH (05:42)
[2023-01-19 06:54] LABS: #Eosinphils 0.1 thou/uL (0.0-0.7); #Monocytes 0.4 thou/uL (0.11-0.59); #Neutrophils 3.3 thou/uL (1.40-6.50); %Basophils 0.3 % (0.0-1.0); %Eosinophils 1.3 % (0.0-10.0); %Lymphocytes 36.2 % (21.0-51.0); %Neutrophils 54.5 % (42.0-75.0); Hematocrit 32.9 % (36.0-47.0); Hemoglobin 11.5 g/dL (12.0-16.0); Mean Corpuscular Hemoglobin 28.6 pg (27.0-31.0); Mean Corpuscular Volume 81.8 fl (78.0-98.0); Mean Platelet Volume 8.8 fL (7.4-10.4); Platelet Count 177 10x3/uL (130-400); RBC Distribution Width 11.9 % (11.5-14.5); Red Blood Cell (RBC) Count 4.02 mill/uL (4.20-5.40)
[2023-01-19 07:18] LABS: Anion Gap 11 mmol/L (10-20); BUN (Urea Nitrogen) Less than 4 mg/dL (7.0-18.7); Calc. Creatinine Clearance 190 mL/min (70-130); Calcium 8.4 mg/dL (7.8-10.44); Carbon Dioxide 23 mmol/L (22-29); Chloride 106 mmol/L (98-107); Estimated GFR 113; Glucose 80 mg/dL (70-105); Potassium 3.5 mmol/L (3.5-5.1); Sodium 136 mmol/L (136-145)
[2023-01-19] MEDS: Metamucil PACK PO SCH (08:05)
[2023-01-19] MEDS: Losartan 25 MG TAB PO SCH (08:05)
[2023-01-19] MEDS: predniSONE 1 MG TAB PO SCH (08:06)
[2023-01-19] MEDS: Pantoprazole 40 MG VIAL IVP SCH ×2 (08:06→20:47)
[2023-01-19] MEDS: Acetaminophen/Codeine 30-300mg Tablet PO PRN ×2 (11:29→20:54)
[2023-01-20] MEDS: NS 0.9% w/ 20 MEQ KCL 1,000 ML IV SCH ×4 (01:02→21:46)
[2023-01-20] MEDS: Levothyroxine Sodium 75 MCG TAB PO SCH (05:11)
[2023-01-20] MEDS: Ondansetron ODT 4 MG TAB SL SCH ×2 (05:11→10:24)
[2023-01-20] MEDS: Pantoprazole 40 MG VIAL IVP SCH ×2 (07:41→20:20)
[2023-01-20] MEDS: Losartan 25 MG TAB PO SCH (07:42)
[2023-01-20] MEDS: predniSONE 1 MG TAB PO SCH (07:42)
[2023-01-20] MEDS: Metamucil PACK PO SCH (07:47)
[2023-01-20] MEDS ORDERED: Ondansetron PF 4 MG/2 ML Vial IVP PRN (18:15)
[2023-01-20] MEDS ORDERED: Ondansetron PF 4 MG/2 ML Vial IVP SCH (18:30)
[2023-01-20] MEDS: Acetaminophen/Codeine 30-300mg Tablet PO PRN (20:19)
[2023-01-21] MEDS: Levothyroxine Sodium 75 MCG TAB PO SCH (04:44)
[2023-01-21] MEDS: NS 0.9% w/ 20 MEQ KCL 1,000 ML IV SCH ×2 (04:44→11:49)
[2023-01-21] MEDS: Losartan 25 MG TAB PO SCH (07:56)
[2023-01-21] MEDS: Pantoprazole 40 MG VIAL IVP SCH ×2 (07:56→21:16)
[2023-01-21] MEDS: Metamucil PACK PO SCH (07:57)
[2023-01-21] MEDS: predniSONE 1 MG TAB PO SCH (07:57)
[2023-01-21] MEDS ORDERED: fentaNYL 50 mcg/mL 1 mL Vial SLOW IVP PRN (07:59)
[2023-01-21 09:29] LABS: #Eosinphils 0.1 thou/uL (0.0-0.7); #Monocytes 0.5 thou/uL (0.11-0.59); #Neutrophils 4.8 thou/uL (1.40-6.50); %Basophils 0.4 % (0.0-1.0); %Eosinophils 1.4 % (0.0-10.0); %Lymphocytes 24.6 % (21.0-51.0); %Monocytes 6.8 % (0.0-10.0); %Neutrophils 65.6 % (42.0-75.0); Hematocrit 35.3 % (36.0-47.0); Hemoglobin 12.9 g/dL (12.0-16.0); Mean Corpuscular HGB CONC 36.5 g/dL (32.0-36.0); Mean Corpuscular Hemoglobin 29.1 pg (27.0-31.0); Mean Corpuscular Volume 79.7 fl (78.0-98.0); Mean Platelet Volume 8.3 fL (7.4-10.4); Platelet Count 213 10x3/uL (130-400); RBC Distribution Width 11.4 % (11.5-14.5); Red Blood Cell (RBC) Count 4.43 mill/uL (4.20-5.40); White Blood Cell (WBC) Count 7.3 10x3/uL (4.8-10.8)
[2023-01-21] MEDS: Promethazine HCl 25 MG in Sodium Chloride 0.9% 50 ML IVPB SCH ×3 (09:29→21:44)
[2023-01-21 09:44] LABS: Prothrombin Time 13.4 sec (12.0-14.7)
[2023-01-21 09:50] LABS: ALT (SGPT) 23 U/L (8-55); AST (SGOT) 21 U/L (5-34); Alkaline Phosphatase 70 U/L (40-110); Anion Gap 13 mmol/L (10-20); BUN (Urea Nitrogen) Less than 4 mg/dL (7.0-18.7); Bilirubin, Total 0.6 mg/dL (0.2-1.2); Calc. Creatinine Clearance 215 mL/min (70-130); Calcium 8.5 mg/dL (7.8-10.44); Carbon Dioxide 17 mmol/L (22-29); Chloride 90 mmol/L (98-107); Estimated GFR 116; Globulin 2.3 g/dL (2.4-3.5); Glucose 89 mg/dL (70-105); Lipase 21 U/L (8-78); Potassium 3.1 mmol/L (3.5-5.1); Protein, Total 6.3 g/dL (6.0-8.3)
[2023-01-21 12:21] LABS: Sodium 118 mmol/L (136-145)
[2023-01-21] MEDS ORDERED: Bupivacaine 0.25% HCL 30 ML VIAL ONE (12:28)
[2023-01-21] MEDS ORDERED: EPINEPHrine 1 MG/ML AMP ONE (12:28)
[2023-01-21] MEDS ORDERED: Fentanyl 250 MCG/5 ML VIAL ONE (12:51)
[2023-01-21] MEDS ORDERED: SUGAMMADEX SODIUM 200 MG/2 ML VIAL ONE (12:52)
[2023-01-21] MEDS ORDERED: Ondansetron PF 4 MG/2 ML Vial ONE ×2 (12:57→14:43)
[2023-01-21] MEDS ORDERED: Rocuronium Bromide 10 MG/ML (10ML VIAL) ONE (12:57)
[2023-01-21] MEDS ORDERED: Lidocaine 1% PF 5 ML VIAL ONE (12:57)
[2023-01-21] MEDS ORDERED: Succinylcholine 200 MG/10 ml SYRINGE FS ONE (12:57)
[2023-01-21] MEDS ORDERED: PROPOFOL 200 MG/20 ML VIAL ONE (12:57)
[2023-01-21] MEDS ORDERED: ePHEDrine Sulfate 50 MG/10 ML VIAL ONE (12:57)
[2023-01-21] MEDS ORDERED: HYDROcodone/Acetaminophen 7.5/325 mg Tablet PO PRN (14:05)
[2023-01-21] MEDS ORDERED: NS 0.9% w/ 20 MEQ KCL 1,000 ML IV SCH (14:06)
[2023-01-21] MEDS ORDERED: HYDROmorphone 2 MG/ML VIAL SLOW IVP PRN (14:13)
[2023-01-21] MEDS ORDERED: Ondansetron HCl/PF 4 MG/2 ML Vial IVP PRN (14:13)
[2023-01-21] MEDS ORDERED: Promethazine HCl 25 MG/ML VIAL IM PRN (14:13)
[2023-01-21] MEDS ORDERED: fentaNYL 50 mcg/mL 1 mL Vial ONE ×3 (14:14→14:49)
[2023-01-21] MEDS ORDERED: Furosemide 40 MG/4 ML VIAL ONE (15:34)
[2023-01-21] MEDS ORDERED: Furosemide 20 MG/2 ML VIAL SLOW IVP SCH (15:45)
[2023-01-21] MEDS ORDERED: Sodium Chloride 0.9% 250 ML 200 ML IVPB SCH (15:45)
[2023-01-21] MEDS: Sodium Chloride 0.9% 1,000 ML IV SCH (15:48)
[2023-01-21] MEDS: Sodium Chloride 0.9% 200 ML IV SCH ×2 (15:48→15:49)
[2023-01-21] MEDS: Acetaminophen/Codeine 30-300mg Tablet PO PRN (21:16)
[2023-01-21] MEDS: Cyclobenzaprine 10 MG TAB PO PRN (22:01)
[2023-01-22] MEDS: Sodium Chloride 0.9% 1,000 ML IV SCH ×2 (00:26→08:13)
[2023-01-22] MEDS: Promethazine HCl 25 MG in Sodium Chloride 0.9% 50 ML IVPB SCH (04:33)
[2023-01-22] MEDS: Levothyroxine Sodium 75 MCG TAB PO SCH (05:55)
[2023-01-22] MEDS: Acetaminophen/Codeine 30-300mg Tablet PO PRN (05:55)
[2023-01-22 06:59] LABS: #Eosinphils 0.1 thou/uL (0.0-0.7); #Monocytes 0.6 thou/uL (0.11-0.59); #Neutrophils 7.7 thou/uL (1.40-6.50); %Basophils 0.2 % (0.0-1.0); %Eosinophils 0.9 % (0.0-10.0); %Lymphocytes 13.6 % (21.0-51.0); %Monocytes 5.8 % (0.0-10.0); %Neutrophils 78.6 % (42.0-75.0); Hematocrit 37.8 % (36.0-47.0); Hemoglobin 13.5 g/dL (12.0-16.0); Mean Corpuscular HGB CONC 35.7 g/dL (32.0-36.0); Mean Corpuscular Hemoglobin 28.6 pg (27.0-31.0); Mean Corpuscular Volume 80.1 fl (78.0-98.0); Mean Platelet Volume 8.6 fL (7.4-10.4); Platelet Count 239 10x3/uL (130-400); RBC Distribution Width 11.9 % (11.5-14.5); Red Blood Cell (RBC) Count 4.72 mill/uL (4.20-5.40); White Blood Cell (WBC) Count 9.8 10x3/uL (4.8-10.8)
[2023-01-22 07:21] LABS: Anion Gap 15 mmol/L (10-20); BUN (Urea Nitrogen) Less than 4 mg/dL (7.0-18.7); Calc. Creatinine Clearance 215 mL/min (70-130); Calcium 8.6 mg/dL (7.8-10.44); Carbon Dioxide 18 mmol/L (22-29); Chloride 92 mmol/L (98-107); Estimated GFR 116; Glucose 72 mg/dL (70-105); Potassium 3.1 mmol/L (3.5-5.1); Sodium 122 mmol/L (136-145)
[2023-01-22 07:28] VITALS: TEMP 98.6
[2023-01-22] MEDS ORDERED: Desmopressin 0.2 mg Tablet PO SCH (09:00)
[2023-01-22] MEDS: Metamucil PACK PO SCH (09:10)
[2023-01-22] MEDS: predniSONE 1 MG TAB PO SCH (09:11)
[2023-01-22] MEDS: Losartan 25 MG TAB PO SCH (09:11)
[2023-01-22 09:12] VITALS: BP 117/71
[2023-01-22] MEDS ORDERED: Promethazine 25 MG TAB PO SCH (12:00)
== END 2023-01-22 16:00 | disposition home or self-care (01) | DRG 418 ==
LOC: ERS 17:41 → T4-A 20:46 → OBSVTOIN 01-17 10:23
PROVIDERS: ADMIT Specialist; ATTEND Specialist
PROC: 0DB98ZX Excision of Duodenum, Via Natural or Artificial Opening Endoscopic, Diagnostic (ICD-10-PCS; principal; 2023-01-18)
PROC: 0DBP8ZX Excision of Rectum, Via Natural or Artificial Opening Endoscopic, Diagnostic (ICD-10-PCS; 2023-01-18)
PROC: 0FT44ZZ Resection of Gallbladder, Percutaneous Endoscopic Approach (ICD-10-PCS; 2023-01-21)
PROC: 5A09357 Assistance with Respiratory Ventilation, Less than 24 Consecutive Hours, Continuous Positive Airway Pressure (ICD-10-PCS; 2023-01-22)
DX: K85.90 Acute pancreatitis without necrosis or infection, unspecified (principal); E87.1 Hypo-osmolality and hyponatremia; K81.1 Chronic cholecystitis; E86.0 Dehydration; E87.6 Hypokalemia; E04.1 Nontoxic single thyroid nodule; I10 Essential (primary) hypertension; E11.9 Type 2 diabetes mellitus without complications; K21.9 Gastro-esophageal reflux disease without esophagitis; E03.9 Hypothyroidism, unspecified; M19.90 Unspecified osteoarthritis, unspecified site; K52.9 Noninfective gastroenteritis and colitis, unspecified; B34.9 Viral infection, unspecified; K82.8 Other specified diseases of gallbladder; Z79.899 Other long term (current) drug therapy; Z98.890 Other specified postprocedural states; Z90.89 Acquired absence of other organs; Z20.822 Contact with and (suspected) exposure to COVID-19
CPT/HCPCS: 36415; 71275; 74183; 76536; 76705; 78227; 80048; 80053; 80061; 81001; 82533; 83036; 83605; 83690; 83880; 84443; 84484; 84703; 85025; 85610; 85730; 88304; 88305; 93005; 93010; 96361; 96365; 96366; 96375; A9537; A9579; C1889; C9113; J0171; J1650; J1885; J1940; J2405; J2550; J2597; J2704; J3010; J3480; J7050; J7512; Q0162; Q0169; Q9967; S0020; S0028

== ENCOUNTER 2023-02-01 07:01 | Outpatient (CLI) | payer BC ==
[2023-02-01 08:21] LABS: Hematocrit 35.9 % (34.9-44.5); Mean Corpuscular HGB CONC 33.4 g/dL (32.0-36.0); Mean Corpuscular Hemoglobin 28.3 pg (27.0-33.0); Mean Corpuscular Volume 84.7 fl (81.6-98.3); Mean Platelet Volume 9.1 fl (7.4-10.4); Platelet Count 255 10x3/uL (150-450); RBC Distribution Width 12.2 % (11.5-14.5); Red Blood Cell (RBC) Count 4.24 10x6/uL (3.90-5.03); White Blood Cell (WBC) Count 8.7 10x3/uL (3.5-10.5)
[2023-02-01 08:34] LABS: BHCG - Serum Negative (NEGATIVE); Pregs Control Background? CLEAR/WHITE (CLR/WHITE); Pregs Control Bar Appear? YES (CONTROL BAR)
[2023-02-01 08:39] LABS: Anion Gap 17 mmol/L (10-20); BUN (Urea Nitrogen) 11 mg/dL (7.0-18.7); Calc. Creatinine Clearance 0 mL/min (70-130); Carbon Dioxide 26 mmol/L (22-29); Chloride 99 mmol/L (98-107); Estimated GFR 109; Glucose 186 mg/dL (70-105); Potassium 3.1 mmol/L (3.5-5.1); Sodium 139 mmol/L (136-145)
== END 2023-02-01 07:02 | disposition home or self-care (01) ==
LOC: LABBT 07:01
PROVIDERS: ATTEND Neurological Surgery
DX: Z01.812 Encounter for preprocedural laboratory examination (principal); M54.12 Radiculopathy, cervical region
CPT/HCPCS: 80048; 84703; 85027

== ENCOUNTER 2023-02-05 06:28 | Day surgery (SDC) | payer BC ==
[2023-02-01 07:30] VITALS: BMI 36.8
[2023-02-05] MEDS ORDERED: Lidocaine 1% PF 5 ML VIAL ONE (07:46)
[2023-02-05] MEDS ORDERED: PROPOFOL 200 MG/20 ML VIAL ONE (07:46)
[2023-02-05] MEDS ORDERED: Rocuronium Bromide 10 MG/ML (10ML VIAL) ONE (07:46)
[2023-02-05] MEDS ORDERED: Ketorolac Tromethamine 30 MG/ML VIAL ONE (07:46)
[2023-02-05] MEDS ORDERED: Ondansetron PF 4 MG/2 ML Vial ONE (07:46)
[2023-02-05] MEDS ORDERED: Metoclopramide HCl 10 MG/2 ML VIAL ONE (07:46)
[2023-02-05 08:15] LABS: Anion Gap 13 mmol/L (10-20); BUN (Urea Nitrogen) 6 mg/dL (7.0-18.7); Calc. Creatinine Clearance 182 mL/min (70-130); Calcium 9.3 mg/dL (7.8-10.44); Carbon Dioxide 22 mmol/L (22-29); Chloride 112 mmol/L (98-107); Estimated GFR 109; Glucose 116 mg/dL (70-105); Potassium 4.2 mmol/L (3.5-5.1); Sodium 143 mmol/L (136-145)
[2023-02-05] MEDS ORDERED: SUGAMMADEX SODIUM 200 MG/2 ML VIAL ONE (08:28)
[2023-02-05] MEDS ORDERED: Fentanyl 250 MCG/5 ML VIAL ONE (08:29)
[2023-02-05] MEDS ORDERED: Dexmedetomidine 200 MCG/2 ML VIAL ONE (08:29)
[2023-02-05] MEDS ORDERED: Hydrocortisone Sod Succ/PF 100 mg/2 ml Vial ONE (08:30)
[2023-02-05] MEDS ORDERED: Thrombin 5000 UNITS/5 ML VIAL ONE (08:33)
[2023-02-05] MEDS ORDERED: Sodium Chloride 0.9% 100 ML ONE ×2 (08:42→11:58)
[2023-02-05] MEDS ORDERED: CEFAZOLIN 2 GM VIAL ONE ×2 (08:42→11:58)
[2023-02-05] MEDS ORDERED: fentaNYL 50 mcg/mL 1 mL Vial ONE (10:23)
[2023-02-05] MEDS ORDERED: Cyclobenzaprine 10 MG TAB ONE (10:33)
== END 2023-02-05 13:01 | disposition home or self-care (01) ==
LOC: SDC 06:28
PROVIDERS: ATTEND Neurological Surgery
PROC: 0RG1070 Fusion of Cervical Vertebral Joint with Autologous Tissue Substitute, Anterior Approach, Anterior Column, Open Approach (ICD-10-PCS; principal; 2023-02-05)
DX: M54.12 Radiculopathy, cervical region (principal); K21.9 Gastro-esophageal reflux disease without esophagitis; M06.9 Rheumatoid arthritis, unspecified; I77.6 Arteritis, unspecified; E88.81 Metabolic syndrome and other insulin resistance; E03.9 Hypothyroidism, unspecified; E28.2 Polycystic ovarian syndrome; I10 Essential (primary) hypertension; E11.9 Type 2 diabetes mellitus without complications; E78.5 Hyperlipidemia, unspecified; G47.30 Sleep apnea, unspecified; D80.1 Nonfamilial hypogammaglobulinemia; E27.40 Unspecified adrenocortical insufficiency; R01.1 Cardiac murmur, unspecified; Z79.890 Hormone replacement therapy; Z79.899 Other long term (current) drug therapy; Z90.89 Acquired absence of other organs
CPT/HCPCS: 80048; C1713; C1889; J1720; J1885; J2405; J2704; J2765; J3010; J3490

== ENCOUNTER 2023-02-14 13:05 | Emergency (ER) | payer BC ==
[2023-02-14 13:41] LABS: #Basophils 0.1 thou/uL (0.0-0.2); #Eosinphils 0.4 thou/uL (0.0-0.7); #Monocytes 0.8 thou/uL (0.11-0.59); #Neutrophils 7.3 thou/uL (1.40-6.50); %Basophils 0.4 % (0.0-1.0); %Eosinophils 3.1 % (0.0-10.0); %Lymphocytes 26.4 % (21.0-51.0); %Monocytes 6.7 % (0.0-10.0); Hematocrit 39.7 % (36.0-47.0); Hemoglobin 13.9 g/dL (12.0-16.0); Mean Corpuscular Hemoglobin 28.5 pg (27.0-31.0); Mean Corpuscular Volume 81.5 fl (78.0-98.0); Platelet Count 381 10x3/uL (130-400); RBC Distribution Width 11.9 % (11.5-14.5); Red Blood Cell (RBC) Count 4.87 mill/uL (4.20-5.40); White Blood Cell (WBC) Count 11.5 10x3/uL (4.8-10.8)
[2023-02-14 13:53] LABS: PTT 29.6 sec (22.9-36.1); Prothrombin Time 13.5 sec (12.0-14.7)
[2023-02-14 14:05] LABS: ALT (SGPT) 30 U/L (8-55); AST (SGOT) 28 U/L (5-34); Albumin 4.4 g/dL (3.5-5.0); Alkaline Phosphatase 89 U/L (40-110); Anion Gap 14 mmol/L (10-20); BUN (Urea Nitrogen) 5 mg/dL (7.0-18.7); Bilirubin, Total 0.4 mg/dL (0.2-1.2); Calc. Creatinine Clearance 0 mL/min (70-130); Calcium 9.6 mg/dL (7.8-10.44); Carbon Dioxide 23 mmol/L (22-29); Chloride 101 mmol/L (98-107); Estimated GFR 104; Globulin 3.1 g/dL (2.4-3.5); Glucose 129 mg/dL (70-105); Potassium 3.3 mmol/L (3.5-5.1); Protein, Total 7.5 g/dL (6.0-8.3); Sodium 135 mmol/L (136-145)
[2023-02-14 16:02] LABS: Bacteria/HPF 1+ HPF (None Seen); Bilirubin Negative (Negative); Blood, Urine 3+ (Negative); CAUTI Indications for Culture Dysuria,urgency,freq; Clarity Turbid (Clear); Glucose, Urine (Dipstick) Normal (Negative); Ketone, Urine Negative (Negative); Leukocyte 250 Leu/uL (Negative); Nitrite Negative (Negative); Protein, Urine (Dipstick) Negative (Neg-Trace); RBC/HPF 21-50 HPF (0-3); Specific Gravity, Urine 1.017 (1.002-1.036); Urobilinogen Normal mg/dL (Less than 2)
[2023-02-14 16:03] LABS: Pregnancy Test - Urine (BHCG) Negative (Negative); Pregu Control Background? CLEAR/WHITE (CLR/WHITE); Pregu Control Bar Appear? YES (CONTROL BAR); Specific Gravity 1.017 (1.002-1.036); Urine Culture Reflex Yes Yes
[2023-02-14 17:21] LABS: Bacteria/HPF None Seen HPF (None Seen); Bilirubin Negative (Negative); Blood, Urine Negative (Negative); CAUTI Indications for Culture Pelvic or flank pain; Clarity Clear (Clear); Glucose, Urine (Dipstick) Normal (Negative); Ketone, Urine Negative (Negative); Leukocyte Negative Leu/uL (Negative); Nitrite Negative (Negative); Protein, Urine (Dipstick) Negative (Neg-Trace); RBC/HPF None Seen HPF (0-3); Specific Gravity, Urine 1.016 (1.002-1.036); Squamous Epithelial 0-3 HPF (0-3); Urobilinogen Normal mg/dL (Less than 2); WBC/HPF 0-3 HPF (0-3); pH, Urine 7.5 (5.0-9.0)
[2023-02-14 17:23] LABS: Urine Culture Reflex No No
== END 2023-02-14 18:47 | disposition home or self-care (01) ==
LOC: ERS 13:05
DX: E87.6 Hypokalemia (principal); I10 Essential (primary) hypertension; E11.9 Type 2 diabetes mellitus without complications; Z79.899 Other long term (current) drug therapy
CPT/HCPCS: 36416; 80053; 81001; 81025; 83605; 84443; 85025; 85610; 85730; 87040; 87086; 94760

== ENCOUNTER → 2023-03-22 | Day surgery (SDC) | payer BC ==
[~2023-03-22] MED LIST changes: -Iopamidol-370 76% 500 ML MDV (1 ML CHARGE) ONE; +Lidocaine 1% PF 5 ML VIAL ONE; +Sodium Bicarbonate 2.5 MEQ/5 ML VIAL ONE
== END ==
LOC: ULT 12:24
PROVIDERS: ATTEND Internal Medicine Endocrinology, Diabetes & Metabolism
PROC: 0GBH3ZX Excision of Right Thyroid Gland Lobe, Percutaneous Approach, Diagnostic (ICD-10-PCS; principal; 2023-03-22)
DX: E04.1 Nontoxic single thyroid nodule (principal); E78.5 Hyperlipidemia, unspecified; M06.9 Rheumatoid arthritis, unspecified; E03.9 Hypothyroidism, unspecified; I10 Essential (primary) hypertension; G47.33 Obstructive sleep apnea (adult) (pediatric); E23.6 Other disorders of pituitary gland; E72.9 Disorder of amino-acid metabolism, unspecified; E11.65 Type 2 diabetes mellitus with hyperglycemia; E23.2 Diabetes insipidus; E28.2 Polycystic ovarian syndrome; E87.6 Hypokalemia; K21.9 Gastro-esophageal reflux disease without esophagitis; Z90.49 Acquired absence of other specified parts of digestive tract; Z90.89 Acquired absence of other organs; Z79.85 Long-term (current) use of injectable non-insulin antidiabetic drugs; Z79.899 Other long term (current) drug therapy; Z79.890 Hormone replacement therapy
CPT/HCPCS: 10005; 88173; 88305